=== PATIENT | female | born 1940 | race Caucasian/White ===

== ENCOUNTER 2019-10-20 10:49 | Outpatient (CLI) | payer MEDICARE, SELFPAY ==
--- NOTE | ~2019-10-20 | XR_ITS ---
EXAMINATION: XR wrist RT min 3V DATE: 10/20/2019 11:09 INDICATION: Osteoarthritis with medial sided right wrist pain TECHNIQUE: Posteroanterior, ulnar deviation, oblique, and lateral views of the right wrist were obtai gisella. COMPARISON: none FINDINGS: Alignment is normal. No fracture. Diffuse osteopenia. Mild polyarticular osteoarthritis at the radios caphoid, triscaphe, first and fifth carpometacarpal and several of the profiled metacarpophalangeal a nd interphalangeal joints. No cortical erosions to suggest an inflammatory arthritis. Soft tissues ar e unremarkable. IMPRESSION: 1. 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 Reviewed, dictated and finalized at location A.
== END 2019-10-20 10:50 | disposition home or self-care (01) ==
PROVIDERS: PCP Emergency Medicine; Visit Provider Plastic Surgery
DX: M19.041 Primary osteoarthritis, right hand (principal); M19.031 Primary osteoarthritis, right wrist
CPT/HCPCS: 73110

== ENCOUNTER 2019-10-21 00:27 | Outpatient (CLI) | payer MEDICARE, SELFPAY ==
[2019-10-21 18:55] LABS: SARS-CoV-2 RNA PCR Negative
== END 2019-10-21 00:28 | disposition home or self-care (01) ==
LOC: ANHCOVIDDT 00:28
PROVIDERS: PCP Emergency Medicine; Visit Provider Plastic Surgery
DX: Z01.818 Encounter for other preprocedural examination (principal); Z11.59 Encounter for screening for other viral diseases; M18.11 Unilateral primary osteoarthritis of first carpometacarpal joint, right hand
CPT/HCPCS: 87635; C9803; U0003

== ENCOUNTER 2019-10-23 00:59 | Day surgery (SDC) | payer MEDICARE, SELFPAY ==
--- NOTE | 2019-10-21 10:45 | HP_ITS ---
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 HISTORY: Karla is 79. She was referred by Dr. Santacruz, her primary care physician, in February of last year for pain in the right 1st carpometacarpal joint. We had reviewed x-rays from 2019 indicating degenerative changes of the interphalangeal joint and the carpometacarpal joint. She reports discomfort only at the carpometacarpal joint. She was given the corticosteroid injection at that joint in February. She said relief lasted through May, but she has now a lot of pain that interferes with daily activities. We obtained new x-rays, which show mild polyarticular osteoarthritis of the wrist and hand involving the carpometacarpal joint and the triscaphe joint. She declined any injection at this time and requested surgery that had been explained to her before. She understands there will be an excision of a small bone at the base of her thumb and that a device will be placed to suspend the thumb against the index metacarpal. Intention is to relieve her pain and to allow useful range of motion and strength. She would like to proceed. She understands that she could have loss of a small artery to the thumb. She could have numbness over the dorsum of her thumb. She could have instability of this joint. She may have a need for reoperation of this site and she may go on to develop additional arthritis in the future. She would like to proceed. ALLERGIES: SHE LISTS CLONIDINE AND SEAFOOD ALLERGIES. MEDICATIONS: Her current medications include: 1. Benzonatate. 2. Carvedilol. 3. Hydrochlorothiazide. 4. Levothyroxine. 5. Quinapril. 6. Vitamin D2. PAST SURGICAL HISTORY: Prior surgeries include cataract on the left eye several decades ago, hysterectomy in , hernia repair in , some back surgery in 2005 and a broken tibia in 2006. She sees no specialist on a regular basis. She has never been a smoker. REVIEW OF SYSTEMS: Indicates that she has had trouble with shingles, arthritis, thyroid and hypertension. FAMILY HISTORY: Noncontributory. SOCIAL HISTORY: She lives in [place]. She works for the [employer]. PHYSICAL EXAMINATION: GENERAL: She is 5 feet and 0.5 inch. She is 157 pounds. She is in no distress. HEENT: Unremarkable. CHEST: Clear to auscultation. HEART: Regular rate and rhythm by palpation. ABDOMEN: Soft and nontender. Extremities: Appear normal. She uses all 4, but has tenderness at the 1st CMC joint to direct pressure primarily. At this time, she has excellent range of motion of that joint, but it is generally painful. ASSESSMENT: Painful osteoarthritis of the right 1st CMC joint and triscaphe joint, failing conservative treatment. PLAN: Resection arthroplasty with internal brace suspension under general anesthesia. D I MT: Shani ORTEGA
[2019-10-22 08:42] VITALS: BMI 29.6
[2019-10-23] VITALS (7 sets, daily range): BP systolic 125–158; BP diastolic 50–80; PULSE 45–58; RESP 12–20; TEMP 36.1; O2SAT 97–100
--- NOTE | ~2019-10-23 | XR_ITS ---
EXAMINATION: XR surgery orthopedic DATE: 10/23/2019 09:05 INDICATION: Trapezium resection. TECHNIQUE: 3 fluoroscopic spot images of the carpus of the right hand were obtained during procedure performed by Dr. Gillespie. Radiologist was not present for the imaging or procedure. The amount of fluor oscopy time used during this procedure was 0.8 minutes. COMPARISON: 10/20/2019 FINDINGS: Postoperative changes consistent with right first carpal metacarpal suspension arthroplasty with rese ction of the trapezium. There are some lucent expected gas in the soft tissues of the postoperative b ed. There is a subtle lucency at the base of the first metacarpal which could represent an anchor tra ct. No fracture. Mild osteoarthritis at the radial scaphoid articulation. IMPRESSION: 1. Expected postoperative changes of right first carpal metacarpal suspension arthroplasty. See proce dure note for further detail. Reviewed, dictated and finalized at location A. IMPRESSION: 1. Expected postoperative changes of right first carpal metacarpal suspension a rthroplasty. See procedure note for further detail.
--- NOTE | 2019-10-23 06:20 | ECG_ITS ---
Measurements Intervals [place] Rate: 49 P: 45 VT: 151 QRS: -18 QRSD: 143 T: 83 QT: 463 QTc: 420 Interpretive Statements SINUS BRADYCARDIA LEFT BUNDLE BRANCH BLOCK BASELINE ARTIFACT- II, III, AVF ABNORMAL ECG Electronically Signed On 10-23-2019 8:30:58 CDT by Nate Diaz D.O.
--- NOTE | 2019-10-23 06:36 | WPDANESEPPF ---
Anes - Initial Pre Proc Eval Procedure: Operation Date: 10/23/19 07:30 Proposed Procedures p Right Trapezium Resection Arthroplasty with Internal Brace - Cipriano Gillespie MD Date/Time: 10/23/19 06:36 Surgeon: Cipriano Gillespie MD Pre Op Diagnosis: right 1st CMC joint OA with pain Patient Data Age: 79 Gender: F Height: 1.55 m Weight: 70.4 kg Allergies Allergy/AdvReac Type Severity Reaction Status Date / Time clonidine Allergy Severe UNKNOWN Verified 10/23/19 06:11 REACTION SEAFOOD Allergy Severe LIP/THROAT Uncoded 10/23/19 06:11 SWELLING Home Medications Medication Instructions Recorded Confirmed Type Vitamin D3 1 tablet PO DAILY 10/22/19 10/23/19 History carvedilol 6.25 mg PO BID 10/22/19 10/23/19 History fenofibrate 160 mg PO HS 10/22/19 10/23/19 History hydrochlorothiazide 12.5 mg PO DAILY 10/22/19 10/23/19 History levothyroxine 88 mcg PO DAILY 10/22/19 10/23/19 History pravastatin 20 mg PO DAILY 10/22/19 10/23/19 History quinapril 40 mg PO DAILY 10/22/19 10/23/19 History Patient hx anesthesia problems: none Family hx anesthesia problems: none PMFSH Past Medical History Medical History (Updated 10/23/19 @ 06:34 by Douglas Zavala DO) Hyperlipidemia Hypertension Hypothyroidism Surgical History Surgical History (Updated 10/23/19 @ 06:34 by Douglas Zavala DO) History of hysterectomy History of spinal surgery Family History Family History (Updated 12/25/13 @ 07:13 by DOCTOR UNKNOWN) Sibling Family history of coronary artery disease Social History Social History Smoking status: Never smoker Alcohol intake: current Anes - Eval Final PreProcedure Day of Procedure 10/23/19 06:36 Patient weight: overweight Heart: regular rate and rhythm Lungs: clear to auscultation and normal air movement Airway: Mallampati scale class II Neurological: alert and oriented Last oral intake: >/= 8 hours ASA classification: III Emergent: no Anesthetic plan: proceed Anesthesia type and monitoring: general LMA and standard monitoring Informed Consent: The patient's anesthetic plan and its attendant risks and benefits were discussed with the patient/family/POA. Questions were solicited and answers provided to the satisfaction of the patient/family/POA.
[2019-10-23] MEDS: LACTATED RINGERS 1,000 ML 30 ML IV CONT ×2 (06:45→09:21)
[2019-10-23 07:09] LABS: Blood Urea Nitrogen 40 mg/dL (7-17); Calcium 8.8 mg/dL (8.4-10.2); Carbon Dioxide 26 mmol/L (22-30); Chloride 106 mmol/L (98-107); Estimated CRCL calculation 34 ml/min; Estimated Glomerular Filt Rate 48; Glucose 108 mg/dL (65-105); Potassium 4.7 mmol/L (3.4-5.0); Sodium 134 mmol/L (137-145)
--- NOTE | 2019-10-23 07:20 | WPDHPUPDATE1 ---
History and Physical Update Update Date/Time: 10/23/19 07:20 History and Physical has been reviewed, including an updated exam of the patient. There are NO changes in the patient's condition. Risks, benefits, and alternatives have been discussed and questions answered. Patient agrees to proceed with procedure.
[2019-10-23] MEDS: ceFAZolin 2 GM/D5W 50 ML 2 GM/50 ML BAG IVPB (07:35)
[2019-10-23] MEDS: LIDO 1%/EPINEPHRINE 1:100,000 20 ML VIAL INFILTRATE (07:35)
--- NOTE | 2019-10-23 09:07 | SUR.OPER ---
injected additional exparel total of 15cc of exparel
--- NOTE | 2019-10-23 09:28 | P.OPB_ITS ---
Procedure Note - Brief Procedure Note - Brief Date of procedure: 10/23/19 Pre-op diagnosis: right 1st CMC joint OA with pain Post-op diagnosis: same Procedure performed: R trapezium resection arthroplasty with InternalBrace. Implants: Arthrex InternalBrace Anesthesia: GLMA Surgeon: Cipriano Gillespie MD [employer] Technician: Hilda Estimated blood loss (mL): 5 Tourniquet time (min): 60 Drains: No Packing: No Pathology: none sent Complications: No immediate complications Condition: stable Disposition: PACU
--- NOTE | 2019-10-23 10:42 | P.OP_ITS ---
Procedure Note - Detailed Date of procedure: 10/23/19 Pre-op diagnosis: right 1st CMC joint OA with pain Right first CMC Joint painful osteoarthritis. Post-op diagnosis: same Procedure performed: Right trapezium resection arthroplasty with InternalBrace. Description of procedure: The patient's right basal joint was marked as she waited in the preop holding area. She was then taken to the operating room and placed supine on the operating table. A time-out was held and confirmed. The extremity was prepped and draped in usual fashion and she was given general anesthesia with LMA. The site was marked for the incision and locally infiltrated with 1% lidocaine with epinephrine. The tourniquet was inflated to 250 mmHg. The incision was made in the usual fashion and carefully carried through the subcutaneous tissue. Branches of cutaneous nerves were identified and carefully held out of the way throughout the procedure. The access to the joint was made between the abductor pollicis longus and the extensor pollicis brevis. The 1st dorsal compartment was not opened. The princeps pollicis artery was not specifically identified. The capsule was incised with a 15 blade.The base of the metacarpal and the radial surface of the trapezium were dissected subperiosteally, largely with a 15 blade. This exposed our access point on the radial volar aspect of the metacarpal for placement of the suture lock. The trapezium was split with an osteotome and removed piecemeal with small rongeurs. There was minimal osteophyte formation and minimal the reactive tissue around this joint. C-arm images confirmed the absence of the trapezium. The Arthrex internal brace was opened and placed on the table. The included guidewire was passed into the radial base of the metacarpal, imaged, then over- drilled using included equipment. The suture lock was placed into that opening successfully. Using C-arm and C-wire we were able to identify the site to be accessed at the base of the 2nd metacarpal. The C-wire was passed into the radial base of the 2nd metacarpal and imaged. It appeared to lie in a useful position. This was also over-drilled with the supplied equipment. With the thumb in a distracted and adducted position, the suture locked was set over the internal brace fiber locking it into position. There was adequate passive range of motion following this. Images were made of the thumb in this new position. The capsule was repaired with interrupted 3-0 Vicryl sutures at multiple sites; again this did not interfere with range of motion. No advancement or repositioning of the extensor pollicis brevis was done. Redundant capsular tissue was placed inside the joint space. The skin was closed with interrupted and running intradermal 4-0 Monocryl suture. A short thumb spica splint was a pplied allowing IP joint range of motion 15 milliliter of Exparel bupivacaine was infiltrated in and around the joint to include cutaneous branches of the radial nerve. This patient had received 2 g of IV Ancef before the case began. She is being discharged with instructions in wound care and follow-up. She will have a prescription for hydrocodone . Surgeon: Cipriano Gillespie MD
--- NOTE | 2019-10-23 12:33 | SUR.PHASEII ---
1105 dr jimenez wants pt to go home with a sling. sling applied prior to discharge
== END 2019-10-23 11:30 | disposition home or self-care (01) ==
PROVIDERS: Anesthesiology; PCP Emergency Medicine; Visit Provider Plastic Surgery
PROC: (CPT 25447; principal; 2019-10-23 07:30)
DX: M18.11 Unilateral primary osteoarthritis of first carpometacarpal joint, right hand (principal); I10 Essential (primary) hypertension
CPT/HCPCS: 25447; 36415; 80048; 87635; 93005; A4565; A9270; C9290; C9803; J0690; J2405; J2704; J3010; J7120; U0003

== ENCOUNTER 2021-09-07 22:58 | Inpatient (IN) | payer MEDICARE, SELFPAY ==
--- NOTE | ~2021-09-07 | XR_ITS ---
XR chest PICC line DATE: 09/10/2021 14:55 INDICATION: PICC line placement TECHNIQUE: Portable AP chest on 09/10/2021 at 1452 hours COMPARISON: 08/04/2010 2 view chest FINDINGS: Right upper stomach the catheter tip is situated in the lower aspect of the superior vena c suma. NG tube in stomach, proximal side-port 5 cm distal to the diaphragmatic hiatus. There is bibasilar infiltrate and/atelectasis. The lungs otherwise appear clear. No pneumothorax. Heart size is likely within normal range considering magnification associated with AP projection. Diffuse osteopenia. IMPRESSION: Right upper extremity PIC catheter in lower superior vena cava NG tube in stomach Bibasilar infiltrate or atelectasis Reviewed, dictated and finalized at Location A. Reviewed, dictated and finalized at location A.
--- NOTE | ~2021-09-07 | XR_ITS ---
EXAMINATION: XR abdomen/kub 1V INDICATION: Small bowel obstruction TECHNIQUE: Supine view of the abdomen is obtained. COMPARISON: 09/08/2021 FINDINGS: The nasogastric tube is in the stomach. No definitely bowel are identified. The bowel gas p attern is there are minimal airspace opacities of the right lung base. IMPRESSION: 1. No definitely dilated loops of bowel identified. 2. Right basilar airspace opacity, consistent with atelectasis versus pneumonia. Reviewed, dictated and finalized at location A. IMPRESSION: 1. No definitely dilated loops of bowel identified. 2. Right basilar airspace opacity, consistent with atelectasis versus pneumonia .
--- NOTE | ~2021-09-07 | XR_ITS ---
EXAMINATION: XR abdomen NG/feed tube insert INDICATION: Nasogastric tube insertion TECHNIQUE: Portable AP KUB-NG at 0203 hours COMPARISON: CT from yesterday FINDINGS: The nasogastric tube is in the stomach. There is mild atelectasis of the lung bases. No freddy e intraperitoneal gas is identified. IMPRESSION: 1. Nasogastric tube in the stomach. Reviewed, dictated and finalized at location A.
--- NOTE | ~2021-09-07 | XR_ITS ---
EXAMINATION: XR UGI water soluble w sbs DATE: 09/09/2021 16:25 INDICATION: Small bowel obstruction. TECHNIQUE: Water-soluble contrast was administered through the nasogastric tube. Fluoroscopy of the s tomach and small bowel was performed. Fluoroscopy exposure time was 1.3 minutes. Radiographs of the a bdomen were obtained. The total number of images was 16. COMPARISON: CT abdomen and pelvis 09/07/2021 FINDINGS: UPPER GASTROINTESTINAL SERIES: The nasogastric tube tip is in the stomach. The stomach is normal. SMALL BOWEL SERIES: There are multiple dilated loops of small bowel. At 4 hours, the contrast had not passed to the colon . IMPRESSION: 1. Persistently dilated small bowel without passage of contrast to the colon by 4 hours, consistent w ith small bowel obstruction. Reviewed, dictated and finalized at location A. IMPRESSION: 1. Persistently dilated small bowel without passage of contrast to the colon by 4 hours, consistent with small bowel obstruction.
--- NOTE | ~2021-09-07 | CT_ITS ---
EXAMINATION: CT abdomen pelvis wo con DATE: 09/07/2021 23:46 INDICATION: Lower abdominal pain for 6 hours TECHNIQUE: Computed tomography (CT) of the abdomen and pelvis was performed without intravenous contr ast. Automated exposure control and iterative reconstruction technique were employed. Exam dose: 579 .62 mGy-cm total exam DLP. COMPARISON: None. FINDINGS: The lung bases are clear of infiltrate or consolidation. Cardiomegaly. No pericardial or pl eural effusion. Small sliding hiatal hernia. There is evidence of cholelithiasis. No gallbladder wall thickening or pericholecystic fluid or fat s tranding. No bile duct or pancreatic duct dilatation. No hepatic, splenic, pancreatic, and adrenal or renal space-occupying mass lesion is evident on this limited noncontrast examination. There is nonspecific bilateral mild hydronephrosis without evidence of urinary tract calculus. There is atherosclerotic calcification but normal caliber of the abdominal aorta. No intraperitoneal or retroperitoneal or pelvic mass lesion or adenopathy or ascites. Diverticulosis of the sigmoid colon; no CT evidence of diverticulitis. There are fluid distended small bowel segments and small bowel air-fluid levels. Maximal small bowel caliber is noted in the left pelvic area, measuring up to 2.8 cm diameter. The distal small bowel is decompressed. Consider partial small bowel obstruction. Mild free fluid is noted in the dependent pelvis. No abscess cavity is evident. No intraperitoneal free air is detected. Moderate moderate anterior wedge compression fracture deformity of T12. Diffuse osteopenia. Degenerative changes of the lower thoracic and lumbar spine, including severe degenerative disc disea se at L5-S1. There is degenerative change at the lumbar apophyseal joints, with associated grade 1 an terolisthesis at L4-5. IMPRESSION: Partial small bowel obstruction is suggested in the pelvic area Mild free fluid in the dependent pelvis Diverticulosis of the sigmoid colon; no evidence of diverticulitis Nonspecific mild bilateral hydronephrosis Cholelithiasis T12 compression fracture deformity Degenerative changes of the thoracic and lumbar spine Reviewed, dictated and finalized at Location A. Reviewed, dictated and finalized at location B.
[2021-09-07 23:06] VITALS: BP 171/91; PULSE 65; RESP 16; TEMP 36.6; O2SAT 100
--- NOTE | 2021-09-07 23:09 | ED.GENADULT ---
HPI - General Adult General Chief complaint: Abdominal Pain Stated complaint: low abd pain Time Seen by Provider: 09/07/21 23:05 Source: RN notes reviewed History of Present Illness HPI narrative: Patient presents emergency department from home for abdominal pain. Patient states pain began approximately 6:15 PM this evening pain is located across the bilateral lower abdomen is described as aching in nature. States is associated with 2 episodes of nausea vomiting. Patient states her last bowel movement was this morning states she did not take any pain medication at home but did try taking a stool softener but believes she threw it up she denies any fevers or chills, chest pain shortness of breath or any other symptoms Related Data Home Medications Medication Instructions Recorded Confirmed Vitamin D3 1 tablet PO DAILY 10/22/19 10/23/19 carvedilol 6.25 mg PO BID 10/22/19 10/23/19 fenofibrate 160 mg PO HS 10/22/19 10/23/19 hydrochlorothiazide 12.5 mg PO DAILY 10/22/19 10/23/19 levothyroxine 88 mcg PO DAILY 10/22/19 10/23/19 pravastatin 20 mg PO DAILY 10/22/19 10/23/19 quinapril 40 mg PO DAILY 10/22/19 10/23/19 Allergies Allergy/AdvReac Type Severity Reaction Status Date / Time clonidine Allergy Severe UNKNOWN Verified 10/23/19 06:11 REACTION SEAFOOD Allergy Severe LIP/THROAT Uncoded 10/23/19 06:11 SWELLING Review of Systems Review of Systems: Gen.: Denies fevers or chills ENT: Denies congestion Respiratory: Denies shortness of breath or cough CV: Denies chest pain or palpitations GI: See HPI denies burning, urgency, frequency or hematuria Musculoskeletal: Denies back pain or muscle pain Neuro: Denies numbness, tingling, weakness or focal weakness Skin: Denies rash Except as documented, all other systems reviewed and negative [facility] Past Medical History Medical History Hyperlipidemia Hypertension Hypothyroidism Surgical History Surgical History (Updated 10/23/19 @ 06:34 by Douglas Zavala DO) History of hysterectomy History of spinal surgery Family History Family History (Updated 12/25/13 @ 07:13 by DOCTOR UNKNOWN) Sibling Family history of coronary artery disease Social History Social History Smoking status: Never smoker Alcohol intake: current Exam Narrative: APPEARANCE: No acute distress, nontoxic, resting in bed HEENT: Normocephalic, atraumatic, OMM RESPIRATORY: No respiratory distress, clear to auscultation bilaterally with no rhonchi wheezing or rales CARDIOVASCULAR: RRR s murmur ABDOMINAL: Soft nondistended diffusely tender palpation with increased tenderness in right lower quadrant left lower quadrant no rebound or guarding MUSCULOSKELETAl: Moves all extremities. No clubbing, cyanosis or edema. NEURO: Awake and alert. Following commands, speech normal, no focal deficits SKIN:: Warm, dry. Normal Color PSYCHIATRIC: Normal affect/mood Course Course Emergency Course: Discussed with Dr. Reese agrees with consult recommends NG tube be placed Discussed with Dr. Aguilar agrees with admission Discussed with patient and family results of workup and diagnosis. Discussed need for admission. Patient and family understand and agree to current treatment plan Vital Signs Vital signs: Vital Signs Temperature 97.8 F 09/07/21 23:06 Pulse Rate 65 09/07/21 23:06 Respiratory Rate 16 09/07/21 23:06 Blood Pressure 171/91 H 09/07/21 23:06 Pulse Oximetry 100 09/07/21 23:06 Temperature 97.8 F 09/07/21 23:06 Pulse Rate 80 09/08/21 02:41 Respiratory Rate 16 09/08/21 02:41 Blood Pressure 123/55 L 09/08/21 02:41 Pulse Oximetry 98 09/08/21 02:41 Medical Decision Making Vital Signs Vital Signs: Vital Signs Temperature 97.8 F 09/07/21 23:06 Pulse Rate 65 09/07/21 23:06 Respiratory Rate 16 09/07/21 23:06 Blood Pressure 171/9
[2021-09-07] MEDS: ONDANSETRON INJ 4 MG/2 ML VIAL IV PUSH (23:24)
[2021-09-07] MEDS: SODIUM CHLORIDE 0.9% IV 1,000 ML 999 ML IV CONT (23:26)
[2021-09-07 23:43] LABS: Basophils Absolute Auto 0.1 K/mm3 (0.0-0.1); Basophils Percent Auto 0.6 % (0.2-1.2); Eosinophils Absolute Auto 0.2 K/mm3 (0-0.3); Eosinophils Percent Auto 1.8 % (0-4.4); Hematocrit 41.1 % (37.0-47.0); Hemoglobin 13.9 g/dL (12.0-15.0); Immature Granulocyte Absolute 0.04 K/mm3 (0.00-0.031); Immature Granulocyte Percent A 0.4 % (0-0.5); Immature Platelet Fraction Pct 2.2 % (0.9-11.2); Lymphocytes Absolute Auto 2.67 K/mm3 (0.9-3.2); Lymphocytes Percent Auto 25.5 % (18.3-44.2); Mean Corpuscular HGB Conc 33.8 g/dl (32-36); Mean Corpuscular Hemoglobin 29.6 pg (26-34); Mean Corpuscular Volume 87.6 fl (80-100); Mean Platelet Volume 9.3 fl (7.4-10.4); Monocytes Absolute Auto 0.4 K/mm3 (0.1-0.6); Monocytes Percent Auto 3.8 % (2.6-8.5); Neutrophils Absolute Auto 7.1 K/mm3 (1.3-6.7); Neutrophils Percent Auto 67.9 % (45.5-73.1); Platelet Count Result 146 k/mm3 (150-375); Red Blood Count 4.69 M/mm3 (4.2-5.4); Red Cell Distribution Width 13.2 % (11.5-14.5); White Blood Count 10.5 K/mm3 (4.5-10.0)
[2021-09-07 23:59] LABS: Alanine Aminotransferase 8 U/L (6-35); Albumin Level 4.5 g/dL (3.5-5.1); Alkaline Phosphatase 78 U/L (38-126); Anion Gap 8 mmol/L (8-16); Aspartate Amino Transferase 26 U/L (14-36); Bilirubin,Total 0.4 mg/dL (0.2-1.3); Blood Urea Nitrogen 39 mg/dL (7-17); Calcium 9.5 mg/dL (8.4-10.2); Carbon Dioxide 28 mmol/L (22-30); Chloride 99 mmol/L (98-107); Estimated Glomerular Filt Rate 43; Glucose 123 mg/dL (65-110); Lipase 101 U/L (23-300); Potassium 4.6 mmol/L (3.4-5.0); Sodium 135 mmol/L (137-145)
[2021-09-08] VITALS (9 sets, daily range): BP systolic 114–149; BP diastolic 55–78; PULSE 63–80; RESP 16–19; TEMP 36–37.2; O2SAT 94–98; BMI 29.0
[2021-09-08] MEDS: MORPHINE SULFATE (*CRX) 2 MG/ML INJ IV PUSH ×2 (00:11→05:13)
[2021-09-08 01:03] LABS: Appearance Urine Clear (Clear); Bilirubin Urine Negative (Negative); Color Urine Yellow (Yellow); Glucose Urine UA Negative (Negative); Ketones Urine Negative (Negative); Leukocyte Esterase Ur 1+ LEU/UL (Negative); Nitrate Urine Negative (Negative); Protein Urine Negative (Negative); Urobilinogen Urine 0.2 mg/dL (<2.0); pH Urine 6.5 (5.0-9.0)
[2021-09-08 01:16] LABS: Add Urine Microscopic? YES; Blood Urine Trace (Negative)
[2021-09-08 01:36] LABS: Lactic Acid Reflex 0.8 mmol/L (0.7-2.0)
--- NOTE | 2021-09-08 02:04 | PM.IMHP ---
H&P: HPI History of Present Illness Date/Time: 09/08/21 02:04 Chief Complaint: Abdominal pain. Narrative: This is an 81-year-old female with past medical history significant for hypothyroidism, dyslipidemia, hypertension. Patient presents to the emergency room due to abdominal pain diffusely localized, patient has been in her usual state of health up until this moment had a bowel movement in the morning that was rather small in size compared to her usual, had several episodes of nausea and vomiting, patient denies any fevers, rigors, chills, pain or burning with urination, no diarrhea, no hematemesis, no bright red blood per rectum, no melena. Preliminary workup was significant for CT of abdomen and pelvis with early small-bowel obstruction. Decision has been made to admit the patient for further evaluation management and treatment. Review of Systems Review of Systems: Abdominal pain, nausea, vomiting. Constitutional: Constitutional: Denies chills, Denies fatigue, Denies fever(s), Denies malaise and Denies night sweats Eyes: Eyes: Denies change in vision ENT: Denies dysphagia, Denies vertigo, Denies nasal congestion, Denies nasal discharge, Denies nasal obstruction and Denies odynophagia Cardiovascular: Cardiovascular: Denies claudication, Denies leg edema, Denies lightheadedness, Denies radiating jaw, neck or arm pain, Denies palpitations and Denies dyspnea on exertion Respiratory: Respiratory: Denies cough Gastrointestinal: Gastrointestinal: Reports abdominal pain, Denies dyspepsia, Denies heartburn, Denies diarrhea, Reports nausea and Reports vomiting Genitourinary: Genitourinary: Denies dysuria Musculoskeletal: Musculoskeletal: Denies back pain, Denies arthralgias and Denies joint swelling Integumentary/Breasts: Skin/Breast: Denies rash Neurologic: Denies focal weakness and Denies Sensory deficit (Neuro) Psychiatric: Psychiatric: Reports no additional psychiatric complaints and Reports as per HPI Endocrine: Endocrine: Denies cold intolerance, Denies heat intolerance, Denies polyphagia, Denies polydipsia, Denies polyuria and Denies palpitations Hematologic/Lymphatic: Hematologic/Lymphatic: Reports no additional hematologic/lymphatic complaints and Reports as per HPI Allergic/Immunologic: Allergic/Immunologic: Reports no additional allergic/immunologic complaints and Reports as per HPI [facility] Past Medical History Medical History (Updated 09/08/21 @ 04:11 by Junaid Cook MD) Hyperlipidemia Hypertension Hypothyroidism Surgical History Surgical History (Updated 10/23/19 @ 06:34 by Douglas Zavala DO) History of hysterectomy History of spinal surgery Family History Family History (Updated 12/25/13 @ 07:13 by DOCTOR UNKNOWN) Sibling Family history of coronary artery disease Social History Social History Smoking status: Never smoker Alcohol intake: current Meds Home Medications and Allergies Home Medications Medication Instructions Recorded Confirmed Type Vitamin D3 1 tablet PO DAILY 10/22/19 10/23/19 History carvedilol 6.25 mg PO BID 10/22/19 10/23/19 History fenofibrate 160 mg PO HS 10/22/19 10/23/19 History hydrochlorothiazide 12.5 mg PO DAILY 10/22/19 10/23/19 History levothyroxine 88 mcg PO DAILY 10/22/19 10/23/19 History pravastatin 20 mg PO DAILY 10/22/19 10/23/19 History quinapril 40 mg PO DAILY 10/22/19 10/23/19 History hydrocodone-acetaminophen 1 - 2 tablet PO Q4-6H PRN #14 10/23/19 Rx tablet Allergies Allergy/AdvReac Type Severity Reaction Status Date / Time clonidine Allergy Severe UNKNOWN Verified 10/23/19 06:11 REACTION SEAFOOD Allergy Severe LIP/THROAT Uncoded 10/23/19 06:11 SWELLING Vital Signs Vital Signs - 24 hr 09/07/21 23:06 Temperature 97.8 F Pulse Rate 65 Respiratory Rate 16 Blood Pressure 171/91 H Pulse Oximetry 100 Exam Const: General: cooperative, comfortabl
[2021-09-08] MEDS: PANTOPRAZOLE SODIUM IV 40 MG VIAL IV PUSH (02:29)
[2021-09-08 02:39] LABS: SARS-CoV-2 RNA PCR Negative
--- NOTE | 2021-09-08 03:41 | PC.NURSE ---
THis RN tried to call report 3 times before being able to give report to RN that is why it took so long to get patient to the floor.
--- NOTE | 2021-09-08 04:21 | ADMGEN ---
This patient, Karla Coley, was admitted to [facility] Room 321-02. Patient/family oriented to hospital policies and general routines including ID bracelet, bed and alarms, visiting hours, pain management, procedures, bathroom and other care routines, personal items, smoking policy, room service/diet, and visiting hours. Information on how to activate the Rapid Response Team has been discussed. Patient/Family are encouraged to report perceived risks to care and to ask questions if they do not understand what they are told or what they should do.
[2021-09-08] MEDS: ONDANSETRON INJ 4 MG/2 ML VIAL IV PUSH ×3 (05:13→19:04)
[2021-09-08] MEDS: ENOXAPARIN 40 MG/0.4 ML SYRINGE SUB-Q (08:42)
--- NOTE | 2021-09-08 10:06 | PM.CNGS ---
Assessment and Plan Assessment and plan (1) Small bowel obstruction: Code(s): K56.609 - Unspecified intestinal obstruction, unspecified as to partial versus complete obstruction Status: Acute Assessment and Plan: CT scan reviewed and discussed with the patient in detail. The CT suggests a partial small bowel obstruction. Would recommend to continue with conservative treatment with NG tube decompression, IV fluids, NPO ,and analgesics for now. Will continue to follow with serial abdominal exams and imaging. I discussed with the patient that typically this resolves with conservative measures, but this could require surgical exploration if she does not improve as expected. Patient understands and agrees to plan. Thank you for allowing us to see the patient in consultation and we will continue to follow along with you. (2) Acute UTI: Code(s): N39.0 - Urinary tract infection, site not specified Status: Acute Assessment and Plan: Patient was started on IV Rocephin for possible UTI. She is asymptomatic. Management per hospitalist. (3) Hypertension: Code(s): I10 - Essential (primary) hypertension Status: Acute (4) Hypothyroidism: Code(s): E03.9 - Hypothyroidism, unspecified Status: Acute (5) Cholelithiasis: Code(s): K80.20 - Calculus of gallbladder without cholecystitis without obstruction Status: Acute Assessment and Plan: Incidental finding of cholelithiasis with no evidence of cholecystitis on CT. Discussed this with the patient and what signs/symptoms to be aware of for the future. This is not contributing to her acute symptoms. Additional Plan I have discussed the patient's case and plan of care with Dr. Reese. History of Present Illness Consult details Consult date: 09/08/21 Reason for consult: other (Small-bowel obstruction) Requesting physician: Cipriano Spann DO Narrative: This is an 81-year-old female with hypertension, hypothyroidism, and hyperlipidemia, who presented to the ER with complaints of lower abdominal pain. She reports a sudden onset of pain while waiting for her dinner yesterday evening. She states the pain was across her entire lower abdomen and continued to worsen in severity throughout the evening. She developed nausea and had 2 episodes of vomiting. She also reports some bloating. She has never had this pain in the past. Due the severity of pain, she presented to the ER for evaluation. CT scan of abdomen and pelvis suggested a partial small bowel obstruction, cholelithiasis without evidence of cholecystitis, some mild free fluid in the pelvis, and no other acute findings. She was admitted to the hospitalist service and had an NG tube placed. She was started on IV fluids, analgesics, and made NPO. Our service has been consulted for the small-bowel obstruction. She is now seen on medical floor. She reports some improvement in her pain. She denies any flatus today. Her last bowel movement was a very small bowel movement yesterday morning prior to onset of symptoms. No other complaints at this time. She has a history of a partial vaginal hysterectomy and a right lower quadrant ventral hernia repair. She denies any similar episodes in the past or known previous bowel obstructions. 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
[2021-09-08] MEDS: DEXTROSE 5%/0.9% SOD CHL 1,000 ML 100 ML IV CONT (12:01)
--- NOTE | 2021-09-08 14:28 | PM.IMPN ---
Progress Note: A&P Assessment and Plan (1) Small bowel obstruction: Code(s): K56.609 - Unspecified intestinal obstruction, unspecified as to partial versus complete obstruction Status: Acute Assessment and Plan: Admit to regular medical floor Strict NPO NG in place to low intermittent suction Supportive care Follow surgery recommendations 09/08/2021 interval history: patient is a 81-year-old female with remote history right ovary rupture over 50 years ago patient presented emergency department with abdominal pain nausea or vomiting, CT scan of the abdomen showed partial small bowel obstruction, patient seen by surgery service recommending conservative management with NG tube to decompress, bowel rest IV hydration and pain management, will continue to monitor as patient's symptoms improved with flatus and possibly BM, will continue to monitor. (2) Acute UTI: Code(s): N39.0 - Urinary tract infection, site not specified Status: Acute Assessment and Plan: Started on Rocephin Await cultures (3) Hypothyroidism: Code(s): E03.9 - Hypothyroidism, unspecified Status: Acute Assessment and Plan: Unchanged (4) Hypertension: Code(s): I10 - Essential (primary) hypertension Status: Acute Assessment and Plan: Continue to monitor Hydralazine 10 mg IV push for systolic of 150 or greater (5) Hyperlipidemia: Code(s): E78.5 - Hyperlipidemia, unspecified Status: Acute Assessment and Plan: Unchanged Subjective Date/time seen: 09/08/21 14:28 Chief Complaint: Abdominal pain. Narrative: This is an 81-year-old female with past medical history significant for hypothyroidism, dyslipidemia, hypertension. Patient presents to the emergency room due to abdominal pain diffusely localized, patient has been in her usual state of health up until this moment had a bowel movement in the morning that was rather small in size compared to her usual, had several episodes of nausea and vomiting, patient denies any fevers, rigors, chills, pain or burning with urination, no diarrhea, no hematemesis, no bright red blood per rectum, no melena. Preliminary workup was significant for CT of abdomen and pelvis with early small-bowel obstruction. Decision has been made to admit the patient for further evaluation management and treatment. 09/08/2021 interval history: patient is a 81-year-old female with remote history right ovary rupture over 50 years ago patient presented emergency department with abdominal pain nausea or vomiting, CT scan of the abdomen showed partial small bowel obstruction, patient seen by surgery service recommending conservative management with NG tube to decompress, bowel rest IV hydration and pain management, will continue to monitor as patient's symptoms improved with flatus and possibly BM, will continue to monitor. Review of Systems Review of Systems: All systems reviewed & are unremarkable except as noted in HPI and below Exam Narrative: elderly frail Patient is comfortable, NAD HEENT: eyes are clear and none icteric LUNGS: normal respiratory effort ABD: bowel sounds are faint and diffusely tender Lower extremities: no edema SKIN: nonjaundiced Neuro: grossly intact. Objective Data Vital Signs Vital Signs: Vital Signs - 24 hr 09/07/21 23:06 09/08/21 02:41 09/08/21 03:40 Temperature 97.8 F Pulse Rate 65 80 68 Respiratory Rate 16 16 16 Blood Pressure 171/91 H 123/55 L 120/64 Pulse Oximetry 100 98 95 09/08/21 03:50 09/08/21 06:00 09/08/21 08:21 Temperature 96.9 F L 96.8 F L Pulse Rate 63 70 Respiratory Rate 18 16 Blood Pressure 126/64 114/60 Pulse Oximetry 96 95 97 Intake/Output Intake/Output: Intake & Output 09/05/21 09/06/21 09/07/21 09/08/21 23:59 23:59 23:59 23:59 Intake Total 100 50 Balance 100 50 Meds/Results Medications: Active Medications Generic Name Dose Route Start Last Admin
[2021-09-09] VITALS (10 sets, daily range): BP systolic 126–154; BP diastolic 64–75; PULSE 78–93; RESP 14–22; TEMP 36.1–36.9; O2SAT 90–100
[2021-09-09 00:11] LABS: Glucose Point of Care 161 mg/dl (65-105)
[2021-09-09] MEDS: DEXTROSE 5%/0.9% SOD CHL 1,000 ML 100 ML IV CONT (06:33)
[2021-09-09 06:50] LABS: Basophils Percent Auto 0.2 % (0.2-1.2); Eosinophils Percent Auto 0.1 % (0-4.4); Hematocrit 43.8 % (37.0-47.0); Hemoglobin 14.1 g/dL (12.0-15.0); Immature Granulocyte Absolute 0.07 K/mm3 (0.00-0.031); Immature Granulocyte Percent A 0.4 % (0-0.5); Lymphocytes Absolute Auto 2.61 K/mm3 (0.9-3.2); Lymphocytes Percent Auto 15.6 % (18.3-44.2); Mean Corpuscular HGB Conc 32.2 g/dl (32-36); Mean Corpuscular Hemoglobin 29.1 pg (26-34); Mean Corpuscular Volume 90.5 fl (80-100); Mean Platelet Volume 9.9 fl (7.4-10.4); Monocytes Absolute Auto 1.1 K/mm3 (0.1-0.6); Monocytes Percent Auto 6.4 % (2.6-8.5); Neutrophils Absolute Auto 12.9 K/mm3 (1.3-6.7); Neutrophils Percent Auto 77.3 % (45.5-73.1); Platelet Count Result 161 k/mm3 (150-375); Red Blood Count 4.84 M/mm3 (4.2-5.4); Red Cell Distribution Width 13.3 % (11.5-14.5); White Blood Count 16.8 K/mm3 (4.5-10.0)
[2021-09-09 06:58] LABS: Alanine Aminotransferase 10 U/L (6-35); Albumin Level 3.7 g/dL (3.5-5.1); Alkaline Phosphatase 62 U/L (38-126); Anion Gap 6 mmol/L (8-16); Aspartate Amino Transferase 21 U/L (14-36); Bilirubin,Total 0.5 mg/dL (0.2-1.3); Blood Urea Nitrogen 30 mg/dL (7-17); Calcium 8.3 mg/dL (8.4-10.2); Carbon Dioxide 25 mmol/L (22-30); Chloride 104 mmol/L (98-107); Estimated CRCL calculation 30 ml/min; Estimated Glomerular Filt Rate 43; Glucose 138 mg/dL (65-110); Potassium 4.7 mmol/L (3.4-5.0); Sodium 135 mmol/L (137-145)
[2021-09-09 07:09] LABS: Magnesium 1.9 mg/dL (1.6-2.3)
[2021-09-09] MEDS: ENOXAPARIN 40 MG/0.4 ML SYRINGE SUB-Q (08:32)
--- NOTE | 2021-09-09 11:04 | PM.PNGS ---
Progress Note: A&P Assessment and Plan (1) Small bowel obstruction: Code(s): K56.609 - Unspecified intestinal obstruction, unspecified as to partial versus complete obstruction Status: Acute Assessment and Plan: may well be resolved. Will get Gastrografin upper GI small-bowel follow-through. If passes through the small bowel with relatively normal transit, will DC NG and start oral intake. Looks much better today. Subjective Subjective Date/Time Seen: 09/09/21 11:04 Patient reports: feels better, pain is less ( Having no abdominal pain), flatus and afebrile Review of Systems Review of Systems: All systems reviewed & are unremarkable except as noted in HPI and below Constitutional: Constitutional: Denies chills and Denies fever(s) Cardiovascular: Cardiovascular: Denies chest pain, Denies diaphoresis, Denies dyspnea and Denies paroxysmal nocturnal dyspnea Respiratory: Respiratory: Denies chest congestion, Denies cough and Denies dyspnea Gastrointestinal: Gastrointestinal: Reports as per HPI, Denies abdominal pain, Denies heartburn, Denies diarrhea, Denies nausea and Denies vomiting Exam Const: General: comfortable and no acute distress; No confusion Orientation/consciousness: patient oriented x3 and No confusion GI: Inspection: non-distended and no visible herniation GI Palp: Yes Soft to palpation, No Tenderness to palpation present (GI), No Guarding due to palpation present (GI) and No Rebound tenderness present Auscultation: normal bowel sounds Neuro: General: patient oriented x3, no focal motor deficits and No confusion Extrem: General: no calf tenderness and no edema Psych: Affect: normal affect Insight: Good insight present (Psych) Judgement: Good judgement present (Psych) Objective Data Vital Signs Vital Signs: Vital Signs - 24 hr 09/08/21 14:00 09/08/21 22:00 09/08/21 22:14 Temperature 37.2 C 36.3 C L Pulse Rate 72 75 Respiratory Rate 19 16 Blood Pressure 148/78 H 149/76 H Pulse Oximetry 98 94 96 09/09/21 05:27 Temperature 36.3 C L Pulse Rate 80 Respiratory Rate 14 Blood Pressure 149/70 H Pulse Oximetry 97 Intake/Output Intake/Output: Intake & Output 09/06/21 09/07/21 09/08/21 09/09/21 23:59 23:59 23:59 23:59 Intake Total 100 1200 100 Output Total 500 Balance 100 1200 -400 Meds/Results Medications: Active Medications Generic Name Dose Route Start Last Admin Trade Name Freq PRN Reason Stop Dose Admin Enoxaparin Sodium 40 mg 09/08/21 09:00 09/09/21 08:32 Enoxaparin 40 Mg/0.4 Ml Syringe SUB-Q 40 mg DAILY EMMA Administration Ceftriaxone Sodium/Dextrose 1 gm in 50 mls @ 100 mls/hr 09/08/21 21:00 09/08/21 22:37 Rocephin 1 Gm/D5w 50 Ml IVPB Infused Q24H EMMA Infusion Dextrose/Sodium Chloride 1,000 mls @ 100 mls/hr 09/08/21 10:30 09/09/21 06:34 Dextrose 5% Sodium Chloride 0.9% IV CONT Not Given .Q10H EMMA Morphine Sulfate 2 mg 09/08/21 10:32 Morphine Sulfate (*Crx) 2 Mg/Ml Inj IV PUSH Q2H PRN Pain Rated 7-10 Ondansetron HCl 4 mg 09/08/21 02:05 09/08/21 19:04 Ondansetron Inj 4 Mg/2 Ml Vial IV PUSH 4 mg Q4H PRN Administration Nausea Radiology Results: ITS Impressions Abdomen/Pelvis CT 09/08/21 08:06 IMPRESSION: Partial small bowel obstruction is suggested in the pelvic area Mild free fluid in the dependent pelvis Diverticulosis of the sigmoid colon; no evidence of diverticulitis Nonspecific mild bilateral hydronephrosis Cholelithiasis T12 compression fracture deformity Degenerative changes of the thoracic and lumbar spine Abdomen X-Ray 09/09/21 07:10 IMPRESSION: 1. No definitely dilated loops of bowel identified. 2. Right basilar airspace opacity, consistent with atelectasis versus pneumonia. Labs Labs: Laboratory Results - last 24 hr 09/09/21 09/09/21 09/09/21 00:04 06:27 06:27 WBC 16.8 H RBC 4.84 Hgb 14.1 Hct 43.8 MCV 90.5 MCH
[2021-09-09] MEDS: ONDANSETRON INJ 4 MG/2 ML VIAL IV PUSH (16:10)
--- NOTE | 2021-09-09 16:20 | PM.IMPN ---
Progress Note: A&P Assessment and Plan (1) Small bowel obstruction: Code(s): K56.609 - Unspecified intestinal obstruction, unspecified as to partial versus complete obstruction Status: Acute Assessment and Plan: Admit to regular medical floor Strict NPO NG in place to low intermittent suction Supportive care Follow surgery recommendations 09/08/2021 interval history: patient is a 81-year-old female with remote history right ovary rupture over 50 years ago patient presented emergency department with abdominal pain nausea or vomiting, CT scan of the abdomen showed partial small bowel obstruction, patient seen by surgery service recommending conservative management with NG tube to decompress, bowel rest IV hydration and pain management, will continue to monitor as patient's symptoms improved with flatus and possibly BM, will continue to monitor. 09/09/2021 interval history: patient is a 81-year-old female with remote history right ovary rupture over 50 years ago patient presented emergency department with abdominal pain nausea or vomiting, CT scan of the abdomen showed partial small bowel obstruction, patient seen by surgery service recommending conservative management with NG tube to decompress, bowel rest IV hydration and pain management, today patient had a care it showed resolution of the small-bowel obstruction and to further evaluate small-bowel follow-through series is ordered, will follow up, will continue to monitor as patient's symptoms improve, patient seen by surgery service further recommendation to follow (2) Acute UTI: Code(s): N39.0 - Urinary tract infection, site not specified Status: Acute Assessment and Plan: Started on Rocephin Await cultures (3) Hypothyroidism: Code(s): E03.9 - Hypothyroidism, unspecified Status: Acute Assessment and Plan: Unchanged (4) Hypertension: Code(s): I10 - Essential (primary) hypertension Status: Acute Assessment and Plan: Continue to monitor Hydralazine 10 mg IV push for systolic of 150 or greater (5) Hyperlipidemia: Code(s): E78.5 - Hyperlipidemia, unspecified Status: Acute Assessment and Plan: Unchanged Subjective Date/time seen: 09/09/21 16:20 09/09/2021 interval history: patient is a 81-year-old female with remote history right ovary rupture over 50 years ago patient presented emergency department with abdominal pain nausea or vomiting, CT scan of the abdomen showed partial small bowel obstruction, patient seen by surgery service recommending conservative management with NG tube to decompress, bowel rest IV hydration and pain management, today patient had a care it showed resolution of the small-bowel obstruction and to further evaluate small-bowel follow-through series is ordered, will follow up, will continue to monitor as patient's symptoms improve, patient seen by surgery service further recommendation to follow Review of Systems Review of Systems: All systems reviewed & are unremarkable except as noted in HPI and below Exam Narrative: elderly frail Patient is comfortable, NAD HEENT: eyes are clear and none icteric LUNGS: normal respiratory effort ABD: bowel sounds are faint and diffusely tender Lower extremities: no edema SKIN: nonjaundiced Neuro: grossly intact. Objective Data Vital Signs Vital Signs: Vital Signs - 24 hr 09/08/21 22:00 09/08/21 22:14 09/09/21 05:27 Temperature 97.4 F L 97.3 F L Pulse Rate 75 80 Respiratory Rate 16 14 Blood Pressure 149/76 H 149/70 H Pulse Oximetry 94 96 97 09/09/21 13:58 Temperature Pulse Rate Respiratory Rate Blood Pressure Pulse Oximetry 96 Intake/Output Intake/Output: Intake & Output 09/06/21 09/07/21 09/08/21 09/09/21 23:59 23:59 23:59 23:59 Intake Total 100 1200 100 Output Total 500 Balance 100 1200 -400 Meds/Results Medications: Active Medications Generic Name
--- NOTE | 2021-09-09 17:31 | WPDHPUPDATE1 ---
History and Physical Update Update Date/Time: 09/09/21 17:31 Patient had Gastrografin upper GI small-bowel follow-through today which showed persistent and complete small bowel obstruction. There was no passage of contrast into the colon. I talked to the patient and discussed the findings. I have recommended proceeding with exploratory laparotomy for small bowel obstruction. She is agreeable to going ahead. We will proceed tonight. History and Physical has been reviewed, including an updated exam of the patient. There are NO changes in the patient's condition. Risks, benefits, and alternatives have been discussed and questions answered. Patient agrees to proceed with procedure.
--- NOTE | 2021-09-09 17:53 | WPDANESEPPF ---
Anes - Initial Pre Proc Eval Procedure: Operation Date: 09/09/21 17:30 Proposed Procedures p Exploratory Laparotomy, Pos Bowel Resec - Mehul Reese MD Date/Time: 09/09/21 17:53 Surgeon: JOANNE Mcguire Pre Op Diagnosis: Small bowel obstruction, UTI Patient Data Age: 81 Gender: F Height: 1.55 m Weight: 69.6 kg Last Vital Signs Temp 36.3 C L 09/09/21 05:27 Pulse 80 09/09/21 05:27 Resp 14 09/09/21 05:27 BP 149/70 H 09/09/21 05:27 Pulse Ox 96 09/09/21 13:58 Allergies Allergy/AdvReac Type Severity Reaction Status Date / Time clonidine Allergy Severe UNKNOWN Verified 10/23/19 06:11 REACTION SEAFOOD Allergy Severe LIP/THROAT Uncoded 10/23/19 06:11 SWELLING Home Medications Medication Instructions Recorded Confirmed Type carvedilol 6.25 mg PO BID 10/22/19 09/08/21 History hydrochlorothiazide 12.5 mg PO DAILY 10/22/19 09/08/21 History pravastatin 20 mg PO DAILY 10/22/19 09/08/21 History quinapril 40 mg PO DAILY 10/22/19 09/08/21 History levothyroxine 75 mcg PO QAM 09/08/21 09/08/21 History Laboratory Tests 09/09/21 09/09/21 09/09/21 00:04 06:27 06:27 WBC 16.8 K/mm3 H K/mm3 (4.5-10.0) RBC 4.84 M/mm3 M/mm3 (4.2-5.4) Hgb 14.1 g/dL g/dL (12.0-15.0) Hct 43.8 % % (37.0-47.0) MCV 90.5 fl fl (80-100) MCH 29.1 pg pg (26-34) MCHC 32.2 g/dl g/dl (32-36) RDW 13.3 % % (11.5-14.5) Plt Count 161 k/mm3 k/mm3 (150-375) MPV 9.9 fl fl (7.4-10.4) Immature Gran % (Auto) 0.4 % % (0-0.5) Neut % (Auto) 77.3 % H % (45.5-73.1) Lymph % (Auto) 15.6 % L % (18.3-44.2) [place] % (Auto) 6.4 % % (2.6-8.5) Eos % (Auto) 0.1 % % (0-4.4) Baso % (Auto) 0.2 % % (0.2-1.2) Lymph # (Auto) 2.61 K/mm3 K/mm3 (0.9-3.2) [place] # (Auto) 1.1 K/mm3 H K/mm3 (0.1-0.6) Eos # (Auto) 0.0 K/mm3 K/mm3 (0-0.3) Baso # (Auto) 0.0 K/mm3 K/mm3 (0.0-0.1) Abs Immat Gran (auto) 0.07 K/mm3 H K/mm3 (0.00-0.031) Absolute Neuts (auto) 12.9 K/mm3 H K/mm3 (1.3-6.7) Absolute Nucleated RBC 0.0 K/mm3 K/mm3 (0.0-0.012) Nucleated RBC % 0.0 % % (0.0-0.2) Sodium 135 mmol/L L mmol/L (137-145) Potassium 4.7 mmol/L mmol/L (3.4-5.0) Chloride 104 mmol/L mmol/L (98-107) Carbon Dioxide 25 mmol/L mmol/L (22-30) Anion Gap 6 mmol/L L mmol/L (8-16) BUN 30 mg/dL H mg/dL (7-17) Creatinine 1.20 mg/dL H mg/dL (0.7-1.0) Estim Creat Clear Calc 30 ml/min ml/min Estimated GFR 43 L (59 - ) Glucose 138 mg/dL H mg/dL (65-110) POC Capillary Glucose 161 mg/dl H mg/dl (65-105) Calcium 8.3 mg/dL L mg/dL (8.4-10.2) Magnesium Total Bilirubin 0.5 mg/dL mg/dL (0.2-1.3) AST 21 U/L U/L (14-36) ALT 10 U/L U/L (6-35) Alkaline Phosphatase 62 U/L U/L (38-126) Total Protein 7.0 g/dL g/dL (6.3-8.2) Albumin 3.7 g/dL g/dL (3.5-5.1) 09/09/21 06:27 WBC RBC Hgb Hct MCV MCH MCHC RDW Plt Count MPV Immature Gran % (Auto) Neut % (Auto) Lymph % (Auto) [place] % (Auto) Eos % (Auto) Baso % (Auto) Lymph # (Auto) [place] # (Auto) Eos # (Auto) Baso # (Auto) Abs Immat Gran (auto) Absolute Neuts (auto) Absolute Nucleated RBC Nucleated RBC % Sodium Potassium Chloride Carbon Dioxide Anion Gap BUN Creatinine Estim Creat Clear Calc Estimated GFR Glucose POC Capillary Glucose Calcium Magnesium 1.9 mg/dL mg/dL (1.6-2.3) Total Bilirubin AST ALT
[2021-09-09] MEDS: ceFAZolin SODIUM 1 GM VIAL 2 GM IV PUSH (18:24)
[2021-09-09] MEDS: LACTATED RINGERS 1,000 ML 30 ML IV CONT ×2 (18:25→19:40)
--- NOTE | 2021-09-09 19:42 | W.PM.PROC2 ---
Procedure Note - Detailed Date of Procedure 09/09/21 Pre-op Diagnosis Small bowel obstruction Post-op Diagnosis Other (Closed loop small bowel obstruction with bowel infarction) Procedure Performed Small-bowel resection with anastomosis Surgeon Mehul Reese MD [employer]ing Machine Operator Ap gandhi W[employer] Anesthesia General Indications Patient is an 81-year-old woman with severe lower abdominal pain nausea and vomiting. She came to the emergency room 2 days ago. Imaging showed likely small bowel obstruction with transition point in the pelvis. NG tube was placed and the patient actually improved. This morning she was pain free and it seemed that the obstruction had been relieved. An upper GI small-bowel follow-through was done today however and showed a complete obstruction. After talking with the patient, we are proceeding with laparotomy for small bowel obstruction. Findings There was an encircling band in the pelvis that had caused a closed loop obstruction. The intervening bowel was strangulated and infarcted. There was a lot of blood in the distal small bowel likely due to mucosal hemorrhage. No other significant abnormalities were appreciated. Description of Procedure The patient was taken to surgery and induced into general anesthesia. The abdomen is prepped and draped. A midline incision was made starting just above the umbilicus and proceeding down several cm below the umbilicus. We continued our dissection through the subcutaneous and then through the midline fascia into the peritoneal cavity. On reviewing the abdominal contents, it was noted that there was blood in the lumen of dilated small bowel and bloody ascites in the pelvis. This was of course ominous for bowel infarction. The source of obstruction did appear to be in the pelvis. I extended the incision towards the pubis and we was better able to visualize the adhesions in the pelvis. We suctioned away the bloody ascites. I was able to see the area and feel the bands of the adhesions. These were divided and I was able to bring up the involved loops of bowel. On bringing up the bowel, there was a small opening in some of the dilated bowel and some bloody a bowel content had leaked. This was quickly quarantined. It was evident that this was a closed loop obstruction and at this point I was not sure if this bowel would be salvageable or not. I went ahead and closed the small opening with interrupted Lembert sutures of 4-0 silk in a transverse orientation. This went well. We irrigated the pelvis and ran the small bowel. I checked with the general abdominal exploration and no other significant findings were noted. I then relook at the involved area of distal ileum. It did not appear salvageable. I then went ahead with small-bowel resection. We divided the mesentery just proximal and distal to the involved strangulated bowel. I then used at TLC 75 and divided the to normal pieces of bowel also proximal and distal to the strangulated intestine. I then used the LigaSure to divide the mesentery associated with the strangulated bowel. This area of ileum was then passed off as a specimen labeled infarcted ileum. One of the ends of bowel was smaller as it was distal to the obstruction. None the less we were able to perform a [id number] but functional anastomosis. This was performed with interrupted 4-0 silk suture suturing the 2 ends of bowel in a [id number] fashion. I then used the TLC 75 stapler and created the anastomosis. The entero enterotomy was then closed with a 60 mm TLC stapler. I cauterized the stapled end for hemostasis. The bowel looked quite healthy and viable. There was a good lumen palpable. I placed another 4 0 silk suture to buttress the crotch of the anastomosis. I then used 4-0 silk to close the mesenteric defect associated with the anastomosis. We then exposed the pelvis again. I irrigated with another L of warm saline. We suctioned this away. I placed the abdomin
[2021-09-09] MEDS: FAMOTIDINE 20 MG/2 ML VIAL IV PUSH (21:27)
[2021-09-09] MEDS: MORPHINE SULFATE (*CRX) 2 MG/ML INJ IV PUSH (21:27)
[2021-09-09] MEDS: LACTATED RINGERS 1,000 ML 100 ML IV CONT (21:27)
[2021-09-10] MEDS: MORPHINE SULFATE (*CRX) 2 MG/ML INJ IV PUSH ×3 (01:30→21:07)
[2021-09-10 02:15] VITALS: BP 126/68; PULSE 94; RESP 16; TEMP 36.8; O2SAT 95
[2021-09-10] MEDS: LACTATED RINGERS 1,000 ML 100 ML IV CONT ×2 (05:17→08:44)
[2021-09-10 05:42] VITALS: BP 139/62; PULSE 96; RESP 16; TEMP 36.1; O2SAT 95
[2021-09-10 07:49] LABS: Hematocrit 35.8 % (37.0-47.0); Hemoglobin 11.6 g/dL (12.0-15.0); Mean Corpuscular HGB Conc 32.4 g/dl (32-36); Mean Corpuscular Hemoglobin 28.9 pg (26-34); Mean Corpuscular Volume 89.3 fl (80-100); Mean Platelet Volume 9.6 fl (7.4-10.4); Platelet Count Result 119 k/mm3 (150-375); Red Blood Count 4.01 M/mm3 (4.2-5.4); Red Cell Distribution Width 13.5 % (11.5-14.5); White Blood Count 11.9 K/mm3 (4.5-10.0)
--- NOTE | 2021-09-10 07:52 | WPDANESPN ---
Anes - Prog Note Post-Op Date/Time: 09/10/21 07:52 Vital Signs: Last Vital Signs Temp 36.1 C L 09/10/21 05:42 Pulse 96 09/10/21 05:42 Resp 16 09/10/21 05:42 BP 139/62 09/10/21 05:42 Pulse Ox 95 09/10/21 05:42 Pain Score (VAS): 310 I/O: Intake & Output 09/09/21 09/09/21 09/10/21 15:59 23:59 07:59 Intake Total 100 1050 1000 Output Total 1680 100 Balance 100 -630 900 09/09/21 09/10/21 09/10/21 17:28 07:26 07:26 WBC Pending RBC Pending Hgb Pending Hct Pending MCV Pending MCH Pending MCHC Pending RDW Pending Plt Count Pending MPV Pending Sodium Pending Potassium Pending Chloride Pending Carbon Dioxide Pending Anion Gap Pending BUN Pending Creatinine Pending Estim Creat Clear Calc Pending Estimated GFR Pending Glucose Pending Calcium Pending Magnesium Pending Blood Type A Positive Antibody Screen Negative Patient Feedback: Patient satisfied with anesthetic care.
[2021-09-10 08:03] LABS: Anion Gap 6 mmol/L (8-16); Blood Urea Nitrogen 37 mg/dL (7-17); Carbon Dioxide 28 mmol/L (22-30); Chloride 104 mmol/L (98-107); Estimated CRCL calculation 24 ml/min; Estimated Glomerular Filt Rate 33; Glucose 139 mg/dL (65-110); Magnesium 1.9 mg/dL (1.6-2.3); Potassium 4.4 mmol/L (3.4-5.0); Sodium 138 mmol/L (137-145)
[2021-09-10] MEDS: ENOXAPARIN 40 MG/0.4 ML SYRINGE SUB-Q (08:43)
[2021-09-10] MEDS: FAMOTIDINE 20 MG/2 ML VIAL IV PUSH ×2 (08:44→20:29)
--- NOTE | 2021-09-10 10:49 | PM.PNGS ---
Progress Note: A&P Assessment and Plan (1) Small bowel obstruction with strangulation or infarction: Status: Acute Assessment and Plan: No bowel function as yet. I explained the operative findings to the patient. She is pretty comfortable and wishes to get out of bed later today which is a good idea. Will leave Guzman catheter in till tomorrow and likely discontinue tomorrow. She is doing well so far. Continue to monitor serial exams labs and start TPN as noted below. (2) Protein-calorie malnutrition, moderate: Code(s): E44.0 - Moderate protein-calorie malnutrition Status: Acute Assessment and Plan: Patient will be NPO for several days. She has already been NPO for several days. We will go ahead and get a PICC line placed and start TPN today. Subjective Subjective Date/Time Seen: 09/10/21 10:49 Post Op day: 1 Patient reports: no new complaints, pain is less (Incisional pain is not severe.), no flatus, no bowel movement and afebrile Exam GI: Inspection: non-distended GI Palp: Yes Soft to palpation and Yes Tenderness to palpation present (GI) Auscultation: absent bowel sounds Objective Data Vital Signs Vital Signs: Vital Signs - 24 hr 09/09/21 13:58 09/09/21 19:39 09/09/21 20:07 Temperature 36.8 C Pulse Rate 93 87 Respiratory Rate 19 20 Blood Pressure 148/74 H 151/72 H Pulse Oximetry 96 100 100 09/09/21 20:23 09/09/21 20:38 09/09/21 20:41 Temperature 36.2 C L 36.4 C Pulse Rate 89 88 86 Respiratory Rate 21 H 22 H 16 Blood Pressure 154/73 H 151/75 H 151/73 H Pulse Oximetry 93 94 90 09/09/21 20:56 09/09/21 21:26 09/09/21 22:26 Temperature 36.3 C L 36.1 C L 36.9 C Pulse Rate 87 78 93 Respiratory Rate 16 16 16 Blood Pressure 135/64 126/64 128/68 Pulse Oximetry 90 91 92 09/10/21 02:15 09/10/21 05:42 Temperature 36.8 C 36.1 C L Pulse Rate 94 96 Respiratory Rate 16 16 Blood Pressure 126/68 139/62 Pulse Oximetry 95 95 Intake/Output Intake/Output: Intake & Output 09/07/21 09/08/21 09/09/21 09/10/21 23:59 23:59 23:59 23:59 Intake Total 100 1200 1150 2050 Output Total 2180 100 Balance 100 1200 -1030 1950 Meds/Results Medications: Active Medications Generic Name Dose Route Start Last Admin Trade Name Freq PRN Reason Stop Dose Admin Enoxaparin Sodium 40 mg 09/08/21 09:00 09/10/21 08:43 Enoxaparin 40 Mg/0.4 Ml Syringe SUB-Q 40 mg DAILY EMMA Administration Famotidine 20 mg 09/09/21 21:00 09/10/21 08:44 Famotidine 20 Mg/2 Ml Vial IV PUSH 20 mg Q12HR EMMA Administration Ibuprofen 400 mg in 100 mls @ 200 mls/hr 09/09/21 20:41 Caldolor 400 Mg/100 Ml IVPB Q6H PRN Pain Rated 1-3 Piperacillin Sod/Tazobactam Sod 2.25 gm in 50 mls @ 100 mls/hr 09/10/21 00:00 09/10/21 08:37 Zosyn 2.25 Gm/D5w 50 Ml IVPB Infused Q6HR EMMA Infusion Potassium Chloride/Sodium Chloride 1,000 mls @ 125 mls/hr 09/10/21 09:05 Kcl 20 Meq/Ns IV CONT .Q8H EMMA Morphine Sulfate 2 mg 09/09/21 20:41 09/10/21 01:30 Morphine Sulfate (*Crx) 2 Mg/Ml Inj IV PUSH 2 mg Q2H PRN Administration Pain Rated 4-6 Morphine Sulfate 4 mg 09/09/21 20:41 Morphine Sulfate (*Crx) 4 Mg/Ml Inj IV PUSH Q2H PRN Pain Rated 7-10 Naloxone HCl 0.1 mg 09/09/21 20:41 Naloxone Hcl 0.4 Mg/Ml Vial IV PUSH Q2M PRN Opiate Reversal Ondansetron HCl 4 mg 09/08/21 02:05 09/09/21 16:10 Ondansetron Inj 4 Mg/2 Ml Vial IV PUSH 4 mg Q4H PRN Administration Nausea Radiology Results: ITS Impressions Abdomen/Pelvis CT 09/08/21 08:06 IMPRESSION: Partial small bowel obstruction is suggested in the pelvic area Mild free fluid in the dependent pelvis Diverticulosis of the sigmoid colon; no evidence of diverticulitis Nonspecific mild bilateral hydronephrosis Cholelithiasis T12 compression fracture deformity 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
[2021-09-10] MEDS: SODIUM CHLORIDE 0.9% IV 1,000 ML 999 ML IV CONT (10:59)
[2021-09-10] MEDS: KCL 20MEQ/0.9% SOD CHL 1,000 ML 100 ML IV CONT (12:18)
[2021-09-10 12:39] LABS: Alanine Aminotransferase 6 U/L (6-35); Albumin Level 2.8 g/dL (3.5-5.1); Alkaline Phosphatase 43 U/L (38-126); Anion Gap 5 mmol/L (8-16); Aspartate Amino Transferase 21 U/L (14-36); Bilirubin,Total 0.7 mg/dL (0.2-1.3); Blood Urea Nitrogen 36 mg/dL (7-17); Calcium 7.4 mg/dL (8.4-10.2); Carbon Dioxide 25 mmol/L (22-30); Chloride 107 mmol/L (98-107); Estimated CRCL calculation 28 ml/min; Estimated Glomerular Filt Rate 39; Glucose 113 mg/dL (65-110); Magnesium 1.9 mg/dL (1.6-2.3); Potassium 4.2 mmol/L (3.4-5.0); Sodium 137 mmol/L (137-145)
--- NOTE | 2021-09-10 12:43 | PM.IMPN ---
Progress Note: A&P Assessment and Plan (1) Small bowel obstruction: Code(s): K56.609 - Unspecified intestinal obstruction, unspecified as to partial versus complete obstruction Status: Deleted Assessment and Plan: Admit to regular medical floor Strict NPO NG in place to low intermittent suction Supportive care Follow surgery recommendations 09/08/2021 interval history: patient is a 81-year-old female with remote history right ovary rupture over 50 years ago patient presented emergency department with abdominal pain nausea or vomiting, CT scan of the abdomen showed partial small bowel obstruction, patient seen by surgery service recommending conservative management with NG tube to decompress, bowel rest IV hydration and pain management, will continue to monitor as patient's symptoms improved with flatus and possibly BM, will continue to monitor. 09/09/2021 interval history: patient is a 81-year-old female with remote history right ovary rupture over 50 years ago patient presented emergency department with abdominal pain nausea or vomiting, CT scan of the abdomen showed partial small bowel obstruction, patient seen by surgery service recommending conservative management with NG tube to decompress, bowel rest IV hydration and pain management, today patient had a care it showed resolution of the small-bowel obstruction and to further evaluate small-bowel follow-through series is ordered, will follow up, will continue to monitor as patient's symptoms improve, patient seen by surgery service further recommendation to follow. 09/10/2021 interval history: patient is a 81-year-old female with remote history right ovary rupture over 50 years ago patient presented emergency department with abdominal pain nausea or vomiting, CT scan of the abdomen showed partial small bowel obstruction, on 09/08 patient was seen by surgery service recommending conservative management with NG tube to decompress, bowel rest IV hydration and pain management, on 09/09 patient had small-bowel follow-through series which showed persistent small bowel obstruction and bowel infarction and surgeon recommend surgical repair a small-bowel resection and anastomosis, today patient pain is better denies any nausea or vomiting, not passing any gas, patient has been NPO for some few days, surgeon has started TPN, will continue to monitor as patient's symptoms improve, patient seen by surgery service further recommendation to follow. (2) Acute UTI: Code(s): N39.0 - Urinary tract infection, site not specified Status: Deleted Assessment and Plan: Started on Rocephin Await cultures (3) Hypothyroidism: Code(s): E03.9 - Hypothyroidism, unspecified Status: Acute Assessment and Plan: Unchanged (4) Hypertension: Code(s): I10 - Essential (primary) hypertension Status: Acute Assessment and Plan: Continue to monitor Hydralazine 10 mg IV push for systolic of 150 or greater (5) Hyperlipidemia: Code(s): E78.5 - Hyperlipidemia, unspecified Status: Acute Assessment and Plan: Unchanged Subjective Date/time seen: 09/10/21 12:43 09/10/2021 interval history: patient is a 81-year-old female with remote history right ovary rupture over 50 years ago patient presented emergency department with abdominal pain nausea or vomiting, CT scan of the abdomen showed partial small bowel obstruction, on 09/08 patient was seen by surgery service recommending conservative management with NG tube to decompress, bowel rest IV hydration and pain management, on 09/09 patient had small-bowel follow-through series which showed persistent small bowel obstruction and bowel infarction and surgeon recommend surgical repair a small-bowel resection and anastomosis, today patient pain is better denies any nausea or vomiting, not passing any gas, patient has been NPO for some few days, surgeon has started TPN, will contin
[2021-09-10 12:44] LABS: Partial Thromboplastin Time 42.3 SECONDS (22.3-36.8)
[2021-09-10 12:46] LABS: Transferrin 166 mg/dL (206-381)
[2021-09-10 14:00] VITALS: BP 132/76; PULSE 91; RESP 20; TEMP 36.4; O2SAT 92
[2021-09-10] MEDS: FAT EMULSIONS IV 20% 250 ML 20.83 ML IVPB (16:32)
[2021-09-10] MEDS: AMINO ACIDS 5%/D15W/E-LYTES/CA 2,000 ML with MULTIVITAMINS-12 INJ VIAL 1 2.5 ML, MULTIV... 40 ML IV CONT (16:32)
[2021-09-10] MEDS: CENTRAL LINE FLUSH 10 ML IV PUSH (20:29)
[2021-09-10 22:00] VITALS: BP 142/60; PULSE 78; RESP 18; TEMP 36.5; O2SAT 92
[2021-09-10 23:40] LABS: Glucose Point of Care 123 mg/dl (65-105)
[2021-09-11] MEDS: KCL 20MEQ/0.9% SOD CHL 1,000 ML 100 ML IV CONT ×2 (05:40→17:01)
[2021-09-11] MEDS: CENTRAL LINE FLUSH 10 ML IV PUSH ×3 (05:43→22:00)
[2021-09-11 05:46] LABS: Glucose Point of Care 124 mg/dl (65-105)
[2021-09-11 05:50] LABS: Hematocrit 30.3 % (37.0-47.0); Hemoglobin 9.7 g/dL (12.0-15.0); Mean Corpuscular Hemoglobin 29.6 pg (26-34); Mean Corpuscular Volume 92.4 fl (80-100); Mean Platelet Volume 9.6 fl (7.4-10.4); Platelet Count Result 98 k/mm3 (150-375); Red Blood Count 3.28 M/mm3 (4.2-5.4); Red Cell Distribution Width 13.2 % (11.5-14.5)
[2021-09-11 05:58] LABS: Anion Gap 1 mmol/L (8-16); Blood Urea Nitrogen 30 mg/dL (7-17); Calcium 7.7 mg/dL (8.4-10.2); Carbon Dioxide 29 mmol/L (22-30); Chloride 106 mmol/L (98-107); Estimated CRCL calculation 39 ml/min; Estimated Glomerular Filt Rate 60; Glucose 119 mg/dL (65-110); Magnesium 1.8 mg/dL (1.6-2.3); Phosphorus 2.1 mg/dL (2.5-4.5); Potassium 4.3 mmol/L (3.4-5.0); Sodium 136 mmol/L (137-145)
[2021-09-11 06:00] VITALS: BP 149/66; PULSE 81; RESP 16; TEMP 36.2; O2SAT 91
[2021-09-11] MEDS: FAT EMULSIONS IV 20% 250 ML 20.83 ML IVPB (08:49)
[2021-09-11] MEDS: FAMOTIDINE 20 MG/2 ML VIAL IV PUSH ×2 (08:50→21:55)
[2021-09-11 10:38] LABS: Triglycerides 185 mg/dL (<150)
--- NOTE | 2021-09-11 11:47 | PM.PNGS ---
Progress Note: A&P Assessment and Plan (1) Small bowel obstruction with strangulation or infarction: Status: Acute Assessment and Plan: still with postoperative ileus which is expected. Continue NPO, NG tube, IV fluids. Recheck daily exam labs. She is comfortable on p.r.n. analgesics. Will likely take several more days for bowel function to return. (2) Protein-calorie malnutrition, moderate: Code(s): E44.0 - Moderate protein-calorie malnutrition Status: Acute Assessment and Plan: Continue TPN for reasons described above. Subjective Subjective Date/Time Seen: 09/11/21 11:47 Post Op day: 2 Patient reports: no new complaints, no flatus, no bowel movement and afebrile Exam GI: Inspection: distended and incision ( Dry and healing well) GI Palp: Yes Soft to palpation and Yes Tenderness to palpation present (GI) Auscultation: absent bowel sounds Objective Data Vital Signs Vital Signs: Vital Signs - 24 hr 09/10/21 14:00 09/10/21 22:00 09/11/21 06:00 Temperature 36.4 C 36.5 C 36.2 C L Pulse Rate 91 78 81 Respiratory Rate 20 18 16 Blood Pressure 132/76 142/60 H 149/66 H Pulse Oximetry 92 92 91 Intake/Output Intake/Output: Intake & Output 09/08/21 09/09/21 09/10/21 09/11/21 23:59 23:59 23:59 23:59 Intake Total 1200 1150 7340 540 Output Total 2180 550 600 Balance 1200 -1030 6790 -60 Meds/Results Medications: Active Medications Generic Name Dose Route Start Last Admin Trade Name Freq PRN Reason Stop Dose Admin Enoxaparin Sodium 40 mg 09/08/21 09:00 09/11/21 08:12 Enoxaparin 40 Mg/0.4 Ml Syringe SUB-Q Not Given DAILY EMMA Famotidine 20 mg 09/09/21 21:00 09/11/21 08:50 Famotidine 20 Mg/2 Ml Vial IV PUSH 20 mg Q12HR EMMA Administration Ibuprofen 400 mg in 100 mls @ 200 mls/hr 09/09/21 20:41 Caldolor 400 Mg/100 Ml IVPB Q6H PRN Pain Rated 1-3 Piperacillin Sod/Tazobactam Sod 2.25 gm in 50 mls @ 100 mls/hr 09/10/21 00:00 09/11/21 05:40 Zosyn 2.25 Gm/D5w 50 Ml IVPB 100 mls/hr Q6HR EMMA Administration Potassium Chloride/Sodium Chloride 1,000 mls @ 100 mls/hr 09/10/21 09:05 09/11/21 05:40 Kcl 20 Meq/Ns IV CONT 100 mls/hr .Q10H EMMA Administration Dextrose 1,000 mls @ 50 mls/hr 09/10/21 10:52 Dextrose 10% IV CONT .Q20H PRN if PN is interrupted Multivitamins 2.5 ml/ 2,005 mls @ 40 mls/hr 09/10/21 10:55 09/10/21 16:32 Multivitamins 2.5 ml/ Amino IV CONT 40 mls/hr Acids/Electrolytes/Dextrose .Q24H EMMA Administration Protocol Fat Emulsion Intravenous 250 mls @ 20.833 mls/hr 09/10/21 10:55 09/11/21 08:49 Lipids 20% IVPB 20.83 mls/hr QAM EMMA Administration Insulin Human Regular 0 units 09/10/21 12:00 09/11/21 05:40 Insulin Human Regular (*Bkc) 100 Units/Ml SUB-Q Not Given Q6HR [facility] Protocol Morphine Sulfate 2 mg 09/09/21 20:41 09/10/21 21:07 Morphine Sulfate (*Crx) 2 Mg/Ml Inj IV PUSH 2 mg Q2H PRN Administration Pain Rated 4-6 Morphine Sulfate 4 mg 09/09/21 20:41 Morphine Sulfate (*Crx) 4 Mg/Ml Inj IV PUSH Q2H PRN Pain Rated 7-10 Naloxone HCl 0.1 mg 09/09/21 20:41 Naloxone Hcl 0.4 Mg/Ml Vial IV PUSH Q2M PRN Opiate Reversal Ondansetron HCl 4 mg 09/08/21 02:05 09/09/21 16:10 Ondansetron Inj 4 Mg/2 Ml Vial IV PUSH 4 mg Q4H PRN Administration Nausea Sodium Chloride 10 ml 09/10/21 22:00 09/11/21 05:43 Central Line Flush IV PUSH 10 ml Q8HR EMMA Administration Sodium Chloride 10 ml 09/10/21 14:30 Central Line Flush IV PUSH PRN PRN with TPN bag changes Sodium Chloride 20 ml 09/10/21 14:30 Central Line Flush IV PUSH PRN PRN after blood draws Radiology Results: ITS Impressions Abdomen/Pelvis CT 09/08/21 08:06 IMPRESSION: Partial small bowel obstruction is suggested in the pelvic area Mild free fluid in the dependent pelvis Diverticulosis of the sigmoid colon
[2021-09-11] MEDS: AMINO ACIDS 5%/D15W/E-LYTES/CA 2,000 ML with MULTIVITAMINS-12 INJ VIAL 1 2.5 ML, MULTIV... 40 ML IV CONT (12:03)
[2021-09-11 12:08] LABS: Glucose Point of Care 124 mg/dl (65-105)
--- NOTE | 2021-09-11 13:23 | PM.IMPN ---
Progress Note: A&P Assessment and Plan (1) Small bowel obstruction: Code(s): K56.609 - Unspecified intestinal obstruction, unspecified as to partial versus complete obstruction Status: Deleted Assessment and Plan: Admit to regular medical floor Strict NPO NG in place to low intermittent suction Supportive care Follow surgery recommendations 09/08/2021 interval history: patient is a 81-year-old female with remote history right ovary rupture over 50 years ago patient presented emergency department with abdominal pain nausea or vomiting, CT scan of the abdomen showed partial small bowel obstruction, patient seen by surgery service recommending conservative management with NG tube to decompress, bowel rest IV hydration and pain management, will continue to monitor as patient's symptoms improved with flatus and possibly BM, will continue to monitor. 09/09/2021 interval history: patient is a 81-year-old female with remote history right ovary rupture over 50 years ago patient presented emergency department with abdominal pain nausea or vomiting, CT scan of the abdomen showed partial small bowel obstruction, patient seen by surgery service recommending conservative management with NG tube to decompress, bowel rest IV hydration and pain management, today patient had a care it showed resolution of the small-bowel obstruction and to further evaluate small-bowel follow-through series is ordered, will follow up, will continue to monitor as patient's symptoms improve, patient seen by surgery service further recommendation to follow. 09/10/2021 interval history: patient is a 81-year-old female with remote history right ovary rupture over 50 years ago patient presented emergency department with abdominal pain nausea or vomiting, CT scan of the abdomen showed partial small bowel obstruction, on 09/08 patient was seen by surgery service recommending conservative management with NG tube to decompress, bowel rest IV hydration and pain management, on 09/09 patient had small-bowel follow-through series which showed persistent small bowel obstruction and bowel infarction and surgeon recommend surgical repair a small-bowel resection and anastomosis, today patient pain is better denies any nausea or vomiting, not passing any gas, patient has been NPO for some few days, surgeon has started TPN, will continue to monitor as patient's symptoms improve, patient seen by surgery service further recommendation to follow. 09/11/2021 interval history: patient is a 81-year-old female with remote history right ovary rupture over 50 years ago patient presented emergency department with abdominal pain nausea or vomiting, CT scan of the abdomen showed partial small bowel obstruction, on 09/08 patient was seen by surgery service recommending conservative management with NG tube to decompress, bowel rest IV hydration and pain management, on 09/09 patient had small-bowel follow-through series which showed persistent small bowel obstruction and bowel infarction and surgeon recommend surgical repair with small-bowel resection and anastomosis, patient continue to have postoperative ileus, today patient pain is better denies any nausea or vomiting, not passing any gas, patient has been NPO for some few days, on 09/10 surgeon has started TPN, will continue to monitor as patient's symptoms improve, will encourage patient to ambulate this will help with ileus, patient seen by surgery service further recommendation to follow. (2) Acute UTI: Code(s): N39.0 - Urinary tract infection, site not specified Status: Deleted Assessment and Plan: Started on Rocephin Await cultures (3) Hypothyroidism: Code(s): E03.9 - Hypothyroidism, unspecified Status: Acute Assessment and Plan: Unchanged (4) Hypertension: Code(s): I10 - Essential (primary) hypertension Status: Acute Assessment and Plan: Continue to monitor
[2021-09-11 14:00] VITALS: BP 158/72; PULSE 77; RESP 20; TEMP 36.3; O2SAT 92
[2021-09-11] MEDS: MORPHINE SULFATE (*CRX) 4 MG/ML INJ IV PUSH (17:11)
[2021-09-11 18:05] LABS: Glucose Point of Care 145 mg/dl (65-105)
[2021-09-11 22:00] VITALS: BP 170/79; PULSE 65; RESP 18; TEMP 36.2; O2SAT 91
[2021-09-12 00:35] LABS: Glucose Point of Care 113 mg/dl (65-105)
[2021-09-12] MEDS: MORPHINE SULFATE (*CRX) 4 MG/ML INJ IV PUSH ×2 (01:26→22:08)
[2021-09-12] MEDS: MORPHINE SULFATE (*CRX) 2 MG/ML INJ IV PUSH (05:32)
[2021-09-12 06:00] VITALS: BP 176/76; PULSE 76; RESP 16; TEMP 36.2; O2SAT 93
[2021-09-12 06:00] LABS: Basophils Percent Auto 0.4 % (0.2-1.2); Eosinophils Absolute Auto 0.2 K/mm3 (0-0.3); Eosinophils Percent Auto 2.9 % (0-4.4); Hematocrit 30.3 % (37.0-47.0); Hemoglobin 9.7 g/dL (12.0-15.0); Immature Granulocyte Absolute 0.05 K/mm3 (0.00-0.031); Immature Granulocyte Percent A 0.6 % (0-0.5); Lymphocytes Absolute Auto 1.94 K/mm3 (0.9-3.2); Lymphocytes Percent Auto 24.3 % (18.3-44.2); Mean Corpuscular Hemoglobin 29.4 pg (26-34); Mean Corpuscular Volume 91.8 fl (80-100); Monocytes Absolute Auto 0.4 K/mm3 (0.1-0.6); Monocytes Percent Auto 5.5 % (2.6-8.5); Neutrophils Absolute Auto 5.3 K/mm3 (1.3-6.7); Neutrophils Percent Auto 66.3 % (45.5-73.1); Platelet Count Result 108 k/mm3 (150-375); Red Cell Distribution Width 12.8 % (11.5-14.5)
[2021-09-12 06:01] LABS: Glucose Point of Care 128 mg/dl (65-105)
[2021-09-12 06:16] LABS: Alanine Aminotransferase 6 U/L (6-35); Albumin Level 2.9 g/dL (3.5-5.1); Alkaline Phosphatase 46 U/L (38-126); Anion Gap 2 mmol/L (8-16); Aspartate Amino Transferase 21 U/L (14-36); Bilirubin,Total 0.4 mg/dL (0.2-1.3); Blood Urea Nitrogen 18 mg/dL (7-17); Carbon Dioxide 28 mmol/L (22-30); Chloride 101 mmol/L (98-107); Estimated CRCL calculation 44 ml/min; Estimated Glomerular Filt Rate > 60; Glucose 133 mg/dL (65-110); Magnesium 1.7 mg/dL (1.6-2.3); Phosphorus 2.8 mg/dL (2.5-4.5); Potassium 4.3 mmol/L (3.4-5.0); Sodium 131 mmol/L (137-145)
[2021-09-12 06:20] LABS: Transferrin 169 mg/dL (206-381)
[2021-09-12] MEDS: CENTRAL LINE FLUSH 10 ML IV PUSH ×3 (06:42→22:00)
[2021-09-12 06:48] LABS: Partial Thromboplastin Time 35.1 SECONDS (22.3-36.8)
[2021-09-12] MEDS: ENOXAPARIN 40 MG/0.4 ML SYRINGE SUB-Q (08:22)
[2021-09-12] MEDS: FAMOTIDINE 20 MG/2 ML VIAL IV PUSH ×2 (08:22→20:49)
[2021-09-12] MEDS: KCL 20MEQ/0.9% SOD CHL 1,000 ML 100 ML IV CONT (10:26)
[2021-09-12] MEDS: FAT EMULSIONS IV 20% 250 ML 20.83 ML IVPB (10:31)
[2021-09-12] MEDS: AMINO ACIDS 5%/D15W/E-LYTES/CA 2,000 ML with MULTIVITAMINS-12 INJ VIAL 1 2.5 ML, MULTIV... 40 ML IV CONT (10:33)
[2021-09-12 11:51] LABS: Glucose Point of Care 132 mg/dl (65-105)
--- NOTE | 2021-09-12 12:56 | PM.PNGS ---
Progress Note: A&P Assessment and Plan (1) Small bowel obstruction with strangulation or infarction: Status: Acute Assessment and Plan: Awaiting return of bowel function. She is still dealing with a post-op ileus as expected. Will continue with NG tube, NPO, and IV fluids with TPN. Discontinue Guzman catheter today. Encouraged to try increasing activity and walk the halls. Try sitting up in a chair today if tolerated. Repeat labs tomorrow. (2) Protein-calorie malnutrition, moderate: Code(s): E44.0 - Moderate protein-calorie malnutrition Status: Acute Assessment and Plan: Continue TPN for nutrition. Additional Plan I have discussed the plan of care with Dr. Reese. Subjective Subjective Date/Time Seen: 09/12/21 10:56 Post Op day: 3 (Small bowel resection) Patient reports: pain is less, no flatus, no bowel movement and afebrile Interval history: Patient seen and examined. Chart reviewed since last exam. She reports that her abdominal pain is improving and she is feeling very comfortable this morning. She had IV Morphine earlier for back pain that she thought was related to wrinkles in the sheets and sleeping in the bed. She is still not passing gas. She reports getting up and walking a few times yesterday but has not been up yet today. She reports feeling tired this morning as well. No other complaints at this time. Review of Systems Review of Systems: All systems reviewed & are unremarkable except as noted in HPI and below Constitutional: Constitutional: Reports as per HPI, Reports no additional constitutional complaints, Denies chills and Denies fever(s) Cardiovascular: Cardiovascular: Reports no additional cardiovascular complaints, Denies chest pain and Denies leg edema Respiratory: Respiratory: Reports no additional respiratory complaints, Denies cough and Denies dyspnea Gastrointestinal: Gastrointestinal: Reports as per HPI and Reports no additional gastrointestinal complaints Neurologic: Reports system reviewed and no additional complaints, except as documented, Denies Abnormal speech present and Denies focal weakness Exam Const: General: comfortable, alert and awake Orientation/consciousness: patient oriented x3 GI: Inspection: non-distended and incision (Incision with scant serosang drainage at the bottom, no erythema) GI Palp: Yes Soft to palpation and Yes Tenderness to palpation present (GI) Auscultation: High-pitched bowel sounds present ( very few tinkling sounds, but very hypoactive) Neuro: General: moves all extremities and no focal motor deficits Extrem: General: no calf tenderness and no edema Psych: Insight: Good insight present (Psych) Judgement: Good judgement present (Psych) Objective Data Vital Signs Vital Signs: Vital Signs - 24 hr 09/11/21 14:00 09/11/21 22:00 09/12/21 06:00 Temperature 97.4 F L 97.2 F L 97.1 F L Pulse Rate 77 65 76 Respiratory Rate 20 18 16 Blood Pressure 158/72 H 170/79 H 176/76 H Pulse Oximetry 92 91 93 Intake/Output Intake/Output: Intake & Output 09/09/21 09/10/21 09/11/21 09/12/21 23:59 23:59 23:59 23:59 Intake Total 1150 7340 4425 3033 Output Total 2180 550 1750 1400 Balance -1030 6790 2675 1633 Meds/Results Medications: Active Medications Generic Name Dose Route Start Last Admin Trade Name Freq PRN Reason Stop Dose Admin Enoxaparin Sodium 40 mg 09/08/21 09:00 09/12/21 08:22 Enoxaparin 40 Mg/0.4 Ml Syringe SUB-Q 40 mg DAILY EMMA Administration Famotidine 20 mg 09/09/21 21:00 09/12/21 08:22 Famotidine 20 Mg/2 Ml Vial IV PUSH 20 mg Q12HR EMMA Administration Ibuprofen 400 mg in 100 mls @ 200 mls/hr 09/09/21 20:41 Caldolor 400 Mg/100 Ml IVPB Q6H PRN Pain Rated 1-3 Piperacillin Sod/Tazobactam Sod 2.25 gm in 50 mls @ 100 mls/hr 09/10/21 00:00 09/12/21 12:27 Zosyn 2.25 Gm/D5w 50 Ml IVPB 100 mls/hr Q6HR EMMA Administration Potassium Chloride/Sodium Chloride 1,000 mls
[2021-09-12 12:58] VITALS: BMI 29.0
[2021-09-12 13:34] VITALS: BP 146/97; PULSE 76; RESP 16; TEMP 36.3; O2SAT 98
--- NOTE | 2021-09-12 17:41 | PM.IMPN ---
Progress Note: A&P Assessment and Plan (1) Small bowel obstruction: Code(s): K56.609 - Unspecified intestinal obstruction, unspecified as to partial versus complete obstruction Status: Deleted Assessment and Plan: Admit to regular medical floor Strict NPO NG in place to low intermittent suction Supportive care Follow surgery recommendations 09/08/2021 interval history: patient is a 81-year-old female with remote history right ovary rupture over 50 years ago patient presented emergency department with abdominal pain nausea or vomiting, CT scan of the abdomen showed partial small bowel obstruction, patient seen by surgery service recommending conservative management with NG tube to decompress, bowel rest IV hydration and pain management, will continue to monitor as patient's symptoms improved with flatus and possibly BM, will continue to monitor. 09/09/2021 interval history: patient is a 81-year-old female with remote history right ovary rupture over 50 years ago patient presented emergency department with abdominal pain nausea or vomiting, CT scan of the abdomen showed partial small bowel obstruction, patient seen by surgery service recommending conservative management with NG tube to decompress, bowel rest IV hydration and pain management, today patient had a care it showed resolution of the small-bowel obstruction and to further evaluate small-bowel follow-through series is ordered, will follow up, will continue to monitor as patient's symptoms improve, patient seen by surgery service further recommendation to follow. 09/10/2021 interval history: patient is a 81-year-old female with remote history right ovary rupture over 50 years ago patient presented emergency department with abdominal pain nausea or vomiting, CT scan of the abdomen showed partial small bowel obstruction, on 09/08 patient was seen by surgery service recommending conservative management with NG tube to decompress, bowel rest IV hydration and pain management, on 09/09 patient had small-bowel follow-through series which showed persistent small bowel obstruction and bowel infarction and surgeon recommend surgical repair a small-bowel resection and anastomosis, today patient pain is better denies any nausea or vomiting, not passing any gas, patient has been NPO for some few days, surgeon has started TPN, will continue to monitor as patient's symptoms improve, patient seen by surgery service further recommendation to follow. 09/11/2021 interval history: patient is a 81-year-old female with remote history right ovary rupture over 50 years ago patient presented emergency department with abdominal pain nausea or vomiting, CT scan of the abdomen showed partial small bowel obstruction, on 09/08 patient was seen by surgery service recommending conservative management with NG tube to decompress, bowel rest IV hydration and pain management, on 09/09 patient had small-bowel follow-through series which showed persistent small bowel obstruction and bowel infarction and surgeon recommend surgical repair with small-bowel resection and anastomosis, patient continue to have postoperative ileus, today patient pain is better denies any nausea or vomiting, not passing any gas, patient has been NPO for some few days, on 09/10 surgeon has started TPN, will continue to monitor as patient's symptoms improve, will encourage patient to ambulate this will help with ileus, patient seen by surgery service further recommendation to follow. 09/12/2021 interval history: patient is a 81-year-old female with remote history right ovary rupture over 50 years ago patient presented emergency department with abdominal pain nausea or vomiting, CT scan of the abdomen showed partial small bowel obstruction, on 09/08 patient was seen by surgery service recommending conservative management with NG tube to decompress, bowel rest IV hydration and pain management, on 09/09 patient had small-bowel follow
[2021-09-12] MEDS: hydrALAZINE HCL 20 MG/ML VIAL 10 MG IV PUSH (20:48)
[2021-09-12 21:30] VITALS: BP 161/79; PULSE 73; RESP 18; TEMP 36.9; O2SAT 96
[2021-09-13 00:04] LABS: Glucose Point of Care 127 mg/dl (65-105)
[2021-09-13] MEDS: MORPHINE SULFATE (*CRX) 4 MG/ML INJ IV PUSH ×2 (02:26→15:40)
[2021-09-13 05:25] VITALS: BP 152/67; PULSE 74; RESP 18; TEMP 37; O2SAT 97
[2021-09-13 05:46] LABS: Glucose Point of Care 83 mg/dl (65-105)
[2021-09-13 05:56] LABS: Hematocrit 31.6 % (37.0-47.0); Hemoglobin 10.3 g/dL (12.0-15.0); Immature Platelet Fraction Pct 2.8 % (0.9-11.2); Mean Corpuscular HGB Conc 32.6 g/dl (32-36); Mean Corpuscular Hemoglobin 29.2 pg (26-34); Mean Corpuscular Volume 89.5 fl (80-100); Mean Platelet Volume 9.6 fl (7.4-10.4); Platelet Count Result 146 k/mm3 (150-375); Red Blood Count 3.53 M/mm3 (4.2-5.4); Red Cell Distribution Width 12.8 % (11.5-14.5); White Blood Count 8.4 K/mm3 (4.5-10.0)
[2021-09-13 05:59] LABS: Anion Gap 4 mmol/L (8-16); Blood Urea Nitrogen 19 mg/dL (7-17); Calcium 8.2 mg/dL (8.4-10.2); Carbon Dioxide 28 mmol/L (22-30); Chloride 98 mmol/L (98-107); Estimated CRCL calculation 44 ml/min; Estimated Glomerular Filt Rate > 60; Glucose 108 mg/dL (65-110); Magnesium 1.7 mg/dL (1.6-2.3); Phosphorus 3.7 mg/dL (2.5-4.5); Potassium 4.2 mmol/L (3.4-5.0); Sodium 130 mmol/L (137-145); Triglycerides 150 mg/dL (<150)
[2021-09-13 08:00] VITALS: PULSE 74; RESP 17; O2SAT 94
[2021-09-13] MEDS: KCL 20MEQ/0.9% SOD CHL 1,000 ML 100 ML IV CONT (08:44)
[2021-09-13] MEDS: ENOXAPARIN 40 MG/0.4 ML SYRINGE SUB-Q (09:00)
--- NOTE | 2021-09-13 09:13 | PC.NURSE ---
Pt ambulated in the hallway assisted per staff.
[2021-09-13] MEDS: hydrALAZINE HCL 20 MG/ML VIAL 10 MG IV PUSH ×2 (09:40→21:44)
[2021-09-13] MEDS: FAMOTIDINE 20 MG/2 ML VIAL IV PUSH ×2 (09:40→21:44)
[2021-09-13] MEDS: FAT EMULSIONS IV 20% 250 ML 20.83 ML IVPB (09:41)
[2021-09-13] MEDS: AMINO ACIDS 5%/D15W/E-LYTES/CA 2,000 ML with MULTIVITAMINS-12 INJ VIAL 1 2.5 ML, MULTIV... 40 ML IV CONT (09:41)
--- NOTE | 2021-09-13 10:40 | PM.PNGS ---
Progress Note: A&P Assessment and Plan (1) Small bowel obstruction with strangulation or infarction: Status: Acute Assessment and Plan: await return of bowel function. Continue NPO, NG, IVF, prn analgesics, labs. Ambulate, continue daily dressing changes. (2) Protein-calorie malnutrition, moderate: Code(s): E44.0 - Moderate protein-calorie malnutrition Status: Acute Assessment and Plan: continue TPN until bowel function returns. Subjective Subjective Date/Time Seen: 09/13/21 10:40 Post Op day: 4 Patient reports: no new complaints, no flatus, no bowel movement and afebrile Exam GI: Inspection: non-distended and incision (healing well, dry with minimal drainage.) GI Palp: Yes Soft to palpation, Yes Tenderness to palpation present (GI) (mild, incisional), No Hernia present and No Palpable mass present Auscultation: absent bowel sounds Objective Data Vital Signs Vital Signs: Vital Signs - 24 hr 09/12/21 13:34 09/12/21 21:30 09/13/21 05:25 Temperature 36.3 C L 36.9 C 37.0 C Pulse Rate 76 73 74 Respiratory Rate 16 18 18 Blood Pressure 146/97 H 161/79 H 152/67 H Pulse Oximetry 98 96 97 Intake/Output Intake/Output: Intake & Output 09/10/21 09/11/21 09/12/21 09/13/21 23:59 23:59 23:59 23:59 Intake Total 7340 4425 4383 2075 Output Total 550 1750 4025 800 Balance 6790 2675 358 1275 Meds/Results Medications: Active Medications Generic Name Dose Route Start Last Admin Trade Name Freq PRN Reason Stop Dose Admin Enoxaparin Sodium 40 mg 09/08/21 09:00 09/12/21 08:22 Enoxaparin 40 Mg/0.4 Ml Syringe SUB-Q 40 mg DAILY EMMA Administration Famotidine 20 mg 09/09/21 21:00 09/13/21 09:40 Famotidine 20 Mg/2 Ml Vial IV PUSH 20 mg Q12HR EMMA Administration Hydralazine HCl 10 mg 09/12/21 13:54 09/13/21 09:40 Hydralazine Hcl 20 Mg/Ml Vial IV PUSH 10 mg Q8H PRN Administration Blood Pressure - High Ibuprofen 400 mg in 100 mls @ 200 mls/hr 09/09/21 20:41 Caldolor 400 Mg/100 Ml IVPB Q6H PRN Pain Rated 1-3 Potassium Chloride/Sodium Chloride 1,000 mls @ 60 mls/hr 09/10/21 09:05 09/13/21 08:44 Kcl 20 Meq/Ns IV CONT 100 mls/hr .[id number] EMMA Administration Dextrose 1,000 mls @ 50 mls/hr 09/10/21 10:52 Dextrose 10% IV CONT .Q20H PRN if PN is interrupted Multivitamins 2.5 ml/ 2,005 mls @ 40 mls/hr 09/10/21 10:55 09/13/21 09:41 Multivitamins 2.5 ml/ Amino IV CONT 40 mls/hr Acids/Electrolytes/Dextrose .Q24H EMMA Administration Protocol Fat Emulsion Intravenous 250 mls @ 20.833 mls/hr 09/10/21 10:55 09/13/21 09:41 Lipids 20% IVPB 20.83 mls/hr QAM EMMA Administration Piperacillin/Tazobactam/Dextrose 3.375 gm in 50 mls @ 100 mls/hr 09/13/21 06:00 09/13/21 05:25 Zosyn 3.375 Gm/D5w 50ml Pm IVPB 100 mls/hr Q6HR EMMA Administration Insulin Human Regular 0 units 09/10/21 12:00 09/13/21 07:47 Insulin Human Regular (*Bkc) 100 Units/Ml SUB-Q Not Given Q6HR [facility] Protocol Metoprolol Tartrate 5 mg 09/12/21 13:55 Metoprolol Tartrate Inj 5 Mg/5 Ml Vial IV PUSH ONCE PRN Heart Rate- High Morphine Sulfate 2 mg 09/09/21 20:41 09/12/21 05:32 Morphine Sulfate (*Crx) 2 Mg/Ml Inj IV PUSH 2 mg Q2H PRN Administration Pain Rated 4-6 Morphine Sulfate 4 mg 09/09/21 20:41 09/13/21 02:26 Morphine Sulfate (*Crx) 4 Mg/Ml Inj IV PUSH 4 mg Q2H PRN Administration Pain Rated 7-10 Naloxone HCl 0.1 mg 09/09/21 20:41 Naloxone Hcl 0.4 Mg/Ml Vial IV PUSH Q2M PRN Opiate Reversal Ondansetron HCl 4 mg 09/08/21 02:05 09/09/21 16:10 Ondansetron Inj 4 Mg/2 Ml Vial IV PUSH 4 mg Q4H PRN Administration Nausea Sodium Chloride 10 ml 09/10/21 22:00 09/13/21 07:48 Central Line Flush IV PUSH Not Given Q8HR EMMA Sodium Chloride 10 ml 09/10/21 14:30 Central Line Flush IV PUSH PRN PRN with TPN bag changes Sodium Chlor
--- NOTE | 2021-09-13 12:04 | PCNFU ---
Nutrition Follow-Up Complete: Altered GI function related to small bowel obstruction as evidenced by current diagnosis, hypoactive bowel sounds and need for TPN for nutrition. Goal:Advance to PO diet when appropriate Pt is not progressing to goal at this time. Continues on TPN to provide full nutrition. Pt current nutrition is TPN:clinimix E 5/15 at 40ml/hr. Nutrition recommendation: Continue with current plan of care. Last recorded weight is 69.6 kg - stable. Bowel Motility: Hypoactive bowel sounds, no flatus, no BM Labs Reviewed: Hgb:10.3, HCT:31.6, NA:130, BUN:19 Meds Noted: lovenox Skin: WNL Additional Notes: TPN initiated yesterday, running Clinimix E 5/15 at 40ml/hr to provide 1182kcals, 48g PRO. 250ml 20% lipids also running for an additional 500kcals. Sufficient to meet nutritional needs. Agree with current diet orders at this time. Monitor TPN, wt, labs. Follow up every sunday and sunday per protocol.
[2021-09-13 12:18] LABS: Glucose Point of Care 142 mg/dl (65-105)
[2021-09-13 14:00] VITALS: BP 150/76; PULSE 74; RESP 17; TEMP 35.7; O2SAT 94
[2021-09-13] MEDS: ONDANSETRON INJ 4 MG/2 ML VIAL IV PUSH (15:39)
[2021-09-13 21:42] VITALS: BP 156/70; PULSE 71; RESP 18; TEMP 36.7; O2SAT 98
[2021-09-13] MEDS: CENTRAL LINE FLUSH 10 ML IV PUSH (21:44)
[2021-09-14] MEDS: KCL 20MEQ/0.9% SOD CHL 1,000 ML 100 ML IV CONT ×2 (00:22→09:10)
[2021-09-14 02:44] LABS: Glucose Point of Care 131 mg/dl (65-105)
[2021-09-14 05:28] VITALS: BP 141/61; PULSE 74; RESP 18; TEMP 36.7; O2SAT 97
[2021-09-14] MEDS: CENTRAL LINE FLUSH 10 ML IV PUSH ×3 (05:40→20:12)
[2021-09-14 06:08] LABS: Anion Gap 8 mmol/L (8-16); Blood Urea Nitrogen 22 mg/dL (7-17); Calcium 8.2 mg/dL (8.4-10.2); Carbon Dioxide 25 mmol/L (22-30); Chloride 101 mmol/L (98-107); Estimated CRCL calculation 46 ml/min; Estimated Glomerular Filt Rate > 60; Glucose 108 mg/dL (65-110); Phosphorus 3.8 mg/dL (2.5-4.5); Potassium 4.3 mmol/L (3.4-5.0); Sodium 134 mmol/L (137-145)
[2021-09-14] MEDS: IBUPROFEN IV 400 MG in SODIUM CHLORIDE 0.9% IV 100 ML 200 MG IVPB (06:21)
[2021-09-14 08:00] VITALS: PULSE 74; RESP 18; O2SAT 97
[2021-09-14] MEDS: FAMOTIDINE 20 MG/2 ML VIAL IV PUSH ×2 (08:18→20:12)
[2021-09-14] MEDS: ENOXAPARIN 40 MG/0.4 ML SYRINGE SUB-Q (08:18)
[2021-09-14] MEDS: FAT EMULSIONS IV 20% 250 ML 20.83 ML IVPB (09:09)
--- NOTE | 2021-09-14 09:46 | PCPTNOTE ---
attempted to see pt for PT eval ~ 945; was with [facility] for OT treatment; unable to complete eval at this time;
[2021-09-14] MEDS: AMINO ACIDS 5%/D15W/E-LYTES/CA 2,000 ML with MULTIVITAMINS-12 INJ VIAL 1 2.5 ML, MULTIV... 40 ML IV CONT (10:05)
[2021-09-14 11:48] LABS: Glucose Point of Care 128 mg/dl (65-105)
--- NOTE | 2021-09-14 12:45 | PM.IMPN ---
Progress Note: A&P Assessment and Plan (1) Small bowel obstruction: Code(s): K56.609 - Unspecified intestinal obstruction, unspecified as to partial versus complete obstruction Status: Deleted Assessment and Plan: Manage per surgery NG in place to low intermittent suction Bowel movement x3 this morning. (2) Acute UTI: Code(s): N39.0 - Urinary tract infection, site not specified Status: Deleted Assessment and Plan: Continue IV antibiotics, and no cultures. (3) Hypothyroidism: Code(s): E03.9 - Hypothyroidism, unspecified Status: Acute Assessment and Plan: Unchanged (4) Hypertension: Code(s): I10 - Essential (primary) hypertension Status: Acute Assessment and Plan: Continue to monitor (5) Hyperlipidemia: Code(s): E78.5 - Hyperlipidemia, unspecified Status: Acute Assessment and Plan: Monitored Subjective Date/time seen: 09/14/21 12:45 Feeling better today, bowel movement x3. Would like to drink coffee Exam Narrative: elderly frail Patient is comfortable, NAD HEENT: eyes are clear and none icteric, NG tube in place. LUNGS: normal respiratory effort ABD: not distant Lower extremities: no edema SKIN: nonjaundiced Neuro: grossly intact. Const: General: cooperative, comfortable, no acute distress, well developed, alert, awake and ill appearing Nutritional Appearance: average body habitus Orientation/consciousness: patient oriented x3 HENMT: Head: normal to inspection, normocephalic and atraumatic Ears: hearing grossly normal bilaterally General nose exam: Normal external nose present Face and sinus: normal facial exam Mouth: Yes Normal oral and palatal mucosa present Eyes: General: appearance normal, both eyes and all related structures Alignment and Position: alignment normal Sclera: sclerae normal Pupils: Equal, round and reactive pupils present EOM: EOMs intact bilaterally Neck: Neck: normal visual inspection, full ROM, no lymphadenopathy, supple and no JVD Thyroid: thyroid normal Lymphatic: no lymphadenopathy noted Resp: Effort & Inspection: normal respiratory effort and able to speak in complete sentences Auscultation: clear to auscultation bilaterally, no crackles, no rales, no rhonchi and no wheezes Cardio: Jugular venous distension: no JVD Rate: regular rate Rhythm: regular rhythm Heart sounds: S1 normal heart sound present and S2 normal heart sound present GI: Inspection: distended Auscultation: Hyperactive bowel sounds present : General: Yes deferred Skin: Rashes: no rashes Wounds: no wounds Neuro: General: patient oriented x3 and CN's II-XI intact bilaterally Cranial nerves: Yes CN's II-XII intact bilaterally and Yes Equal, round and reactive pupils present Cognition (Neuro): normal cognition Speech: normal speech Gait exam (Neuro): Normal gait present Motor exam (neuro): 5/5 motor strength present throughout Sensory Exam: No Sensory deficit (Neuro) Extrem: General: normal to inspection, full ROM, no joint enlargement and no pedal edema Objective Data Vital Signs Vital Signs: Vital Signs - 24 hr 09/13/21 14:00 09/13/21 21:42 09/14/21 05:28 Temperature 96.3 F L 98.1 F 98.0 F Pulse Rate 74 71 74 Respiratory Rate 17 18 18 Blood Pressure 150/76 H 156/70 H 141/61 H Pulse Oximetry 94 98 97 09/14/21 08:00 Temperature Pulse Rate 74 Respiratory Rate 18 Blood Pressure Pulse Oximetry 97 Intake/Output Intake/Output: Intake & Output 09/11/21 09/12/21 09/13/21 09/14/21 23:59 23:59 23:59 23:59 Intake Total 4425 4383 3475 3164 Output Total 1750 4025 1100 0 Balance 2675 358 1495 3164 Meds/Results Medications: Active Medications Generic Name Dose Route Start Last Admin Trade Name Freq PRN Reason Stop Dose Admin Enoxaparin Sodium 40 mg 09/08/21 09:00 09/14/21 08:18 Enoxaparin 40 Mg/0.4 Ml Syringe SUB-Q 40 mg DAILY EMMA Administration Famotidi
--- NOTE | 2021-09-14 12:51 | PM.PNGS ---
Progress Note: A&P Assessment and Plan (1) Small bowel obstruction with strangulation or infarction: Status: Acute Assessment and Plan: Slowly improving. Bowel function returning. Will remove NG tube and start clear liquids. Continue TPN again today until tolerating a more substantial diet. Continue daily dressing changes, incision is healing well. Will repeat labs tomorrow. (2) Protein-calorie malnutrition, moderate: Code(s): E44.0 - Moderate protein-calorie malnutrition Status: Acute Assessment and Plan: Continue TPN today. Additional Plan I have discussed the patient's case and plan of care with Dr. Reese. Subjective Subjective Date/Time Seen: 09/14/21 12:51 Post Op day: 5 (Small bowel resection) Patient reports: no new complaints, feels better, voiding w/o difficulty, flatus, bowel movement (x 3 this morning) and afebrile Interval history: Patient seen and examined. She reports feeling well today, even better than the last few days. She denies any abdominal pain. She is now passing gas and has had 3 bowel movements since 6:00 a.m. this morning. She is sitting up in the chair. Tolerating activity. No other complaints at this time. Review of Systems Review of Systems: All systems reviewed & are unremarkable except as noted in HPI and below Constitutional: Constitutional: Reports no additional constitutional complaints and Denies fever(s) Cardiovascular: Cardiovascular: Reports no additional cardiovascular complaints, Denies chest pain and Denies leg edema Respiratory: Respiratory: Reports no additional respiratory complaints, Denies cough and Denies dyspnea Gastrointestinal: Gastrointestinal: Reports as per HPI and Reports no additional gastrointestinal complaints Exam Const: General: comfortable and awake GI: Inspection: non-distended and incision (healing well, dry with minimal drainage.) GI Palp: Yes Soft to palpation, Yes Tenderness to palpation present (GI) (incisional) and No Guarding due to palpation present (GI) Percussion: Yes normal to percussion Auscultation: normal bowel sounds Neuro: General: moves all extremities and no focal motor deficits Extrem: General: no calf tenderness and no edema Psych: Insight: Good insight present (Psych) Judgement: Good judgement present (Psych) Objective Data Vital Signs Vital Signs: Vital Signs - 24 hr 09/13/21 14:00 09/13/21 21:42 09/14/21 05:28 Temperature 96.3 F L 98.1 F 98.0 F Pulse Rate 74 71 74 Respiratory Rate 17 18 18 Blood Pressure 150/76 H 156/70 H 141/61 H Pulse Oximetry 94 98 97 09/14/21 08:00 Temperature Pulse Rate 74 Respiratory Rate 18 Blood Pressure Pulse Oximetry 97 Intake/Output Intake/Output: Intake & Output 09/11/21 09/12/21 09/13/21 09/14/21 23:59 23:59 23:59 23:59 Intake Total 4425 4383 3475 3164 Output Total 1750 4025 1100 0 Balance 2675 358 8035 3164 Meds/Results Medications: Active Medications Generic Name Dose Route Start Last Admin Trade Name Freq PRN Reason Stop Dose Admin Enoxaparin Sodium 40 mg 09/08/21 09:00 09/14/21 08:18 Enoxaparin 40 Mg/0.4 Ml Syringe SUB-Q 40 mg DAILY EMMA Administration Famotidine 20 mg 09/09/21 21:00 09/14/21 08:18 Famotidine 20 Mg/2 Ml Vial IV PUSH 20 mg Q12HR EMMA Administration Hydralazine HCl 10 mg 09/12/21 13:54 09/13/21 21:44 Hydralazine Hcl 20 Mg/Ml Vial IV PUSH 10 mg Q8H PRN Administration Blood Pressure - High Potassium Chloride/Sodium Chloride 1,000 mls @ 60 mls/hr 09/10/21 09:05 09/14/21 09:10 Kcl 20 Meq/Ns IV CONT 100 mls/hr .[id number] EMMA Administration Dextrose 1,000 mls @ 50 mls/hr 09/10/21 10:52 Dextrose 10% IV CONT .Q20H PRN if PN is interrupted Multivitamins 2.5 ml/ 2,005 mls @ 40 mls/hr 09/10/21 10:55 09/14/21 10:05 Multivitamins 2.5 ml/ Amino IV CONT 40 mls/hr Acids/Electrolytes/Dextrose .Q24H EMMA Administration Protocol Fat Emulsion Intravenou
--- NOTE | 2021-09-14 13:22 | PC.NURSE ---
NG removed this shift, pt advanced to clear liquid diet via general surgery.
[2021-09-14 14:00] VITALS: BP 164/80; PULSE 66; RESP 18; TEMP 35.6; O2SAT 97
[2021-09-14 17:00] LABS: Glucose Point of Care 125 mg/dl (65-105)
--- NOTE | 2021-09-14 17:15 | PC.NURSE ---
reported red/orange loose stools to MD Hugh winn. Awaiting call back.
--- NOTE | 2021-09-14 17:25 | PC.NURSE ---
spoke with MD Reese red/orange stool normal finding, no need to test.
[2021-09-14 22:00] VITALS: BP 173/81; PULSE 65; RESP 16; TEMP 36.7; O2SAT 99
[2021-09-15] MEDS: KCL 20MEQ/0.9% SOD CHL 1,000 ML 60 ML IV CONT (01:43)
[2021-09-15 02:03] LABS: Glucose Point of Care 103 mg/dl (65-105)
[2021-09-15] MEDS: CENTRAL LINE FLUSH 10 ML IV PUSH ×3 (05:31→20:37)
[2021-09-15 05:35] LABS: Glucose Point of Care 90 mg/dl (65-105)
[2021-09-15 05:39] LABS: Basophils Absolute Auto 0.1 K/mm3 (0.0-0.1); Basophils Percent Auto 0.8 % (0.2-1.2); Eosinophils Absolute Auto 0.5 K/mm3 (0-0.3); Eosinophils Percent Auto 4.3 % (0-4.4); Hematocrit 35.4 % (37.0-47.0); Hemoglobin 11.7 g/dL (12.0-15.0); Immature Granulocyte Absolute 0.23 K/mm3 (0.00-0.031); Lymphocytes Absolute Auto 3.02 K/mm3 (0.9-3.2); Lymphocytes Percent Auto 26.8 % (18.3-44.2); Mean Corpuscular HGB Conc 33.1 g/dl (32-36); Mean Corpuscular Hemoglobin 29.3 pg (26-34); Mean Corpuscular Volume 88.7 fl (80-100); Mean Platelet Volume 9.7 fl (7.4-10.4); Monocytes Absolute Auto 1.2 K/mm3 (0.1-0.6); Monocytes Percent Auto 10.3 % (2.6-8.5); Neutrophils Absolute Auto 6.3 K/mm3 (1.3-6.7); Neutrophils Percent Auto 55.8 % (45.5-73.1); Platelet Count Result 200 k/mm3 (150-375); Red Blood Count 3.99 M/mm3 (4.2-5.4); Red Cell Distribution Width 12.9 % (11.5-14.5); White Blood Count 11.3 K/mm3 (4.5-10.0)
[2021-09-15 05:58] LABS: Alanine Aminotransferase 18 U/L (6-35); Albumin Level 3.5 g/dL (3.5-5.1); Alkaline Phosphatase 83 U/L (38-126); Anion Gap 7 mmol/L (8-16); Aspartate Amino Transferase 43 U/L (14-36); Bilirubin,Total 0.9 mg/dL (0.2-1.3); Blood Urea Nitrogen 19 mg/dL (7-17); Calcium 8.7 mg/dL (8.4-10.2); Carbon Dioxide 26 mmol/L (22-30); Chloride 103 mmol/L (98-107); Estimated CRCL calculation 39 ml/min; Estimated Glomerular Filt Rate 60; Glucose 92 mg/dL (65-110); Magnesium 1.8 mg/dL (1.6-2.3); Phosphorus 3.7 mg/dL (2.5-4.5); Potassium 5.5 mmol/L (3.4-5.0); Sodium 136 mmol/L (137-145)
[2021-09-15 06:00] VITALS: BP 164/96; PULSE 87; RESP 18; TEMP 36.6; O2SAT 97
[2021-09-15 08:02] LABS: Glucose Point of Care 121 mg/dl (65-105)
[2021-09-15] MEDS: FAMOTIDINE 20 MG/2 ML VIAL IV PUSH (08:19)
[2021-09-15] MEDS: ENOXAPARIN 40 MG/0.4 ML SYRINGE SUB-Q (08:19)
[2021-09-15] MEDS: FAMOTIDINE 20 MG TABLET PO ×2 (09:43→20:36)
--- NOTE | 2021-09-15 10:33 | PM.IMPN ---
Progress Note: A&P Assessment and Plan (1) Small bowel obstruction: Code(s): K56.609 - Unspecified intestinal obstruction, unspecified as to partial versus complete obstruction Status: Deleted Assessment and Plan: Manage per surgery ng out tolerating liquids wants to eat ok w stopping abx if ok w surgery (2) Acute UTI: Code(s): N39.0 - Urinary tract infection, site not specified Status: Deleted Assessment and Plan: Continue IV antibiotics she has received 3 days for uncomplicated uti ? significant uti without prior symptoms ok w dc abx if not needed from surgical standpoint (3) Hypothyroidism: Code(s): E03.9 - Hypothyroidism, unspecified Status: Acute Assessment and Plan: Unchanged (4) Hypertension: Code(s): I10 - Essential (primary) hypertension Status: Acute Assessment and Plan: Continue to monitor (5) Hyperlipidemia: Code(s): E78.5 - Hyperlipidemia, unspecified Status: Acute Assessment and Plan: Monitored Subjective Date/time seen: 09/15/21 10:33 feeling better Review of Systems Review of Systems: All systems reviewed & are unremarkable except as noted in HPI and below Constitutional: Constitutional: Denies chills, Denies fatigue, Denies fever(s), Denies malaise and Denies night sweats Eyes: Eyes: Denies change in vision ENT: Denies dysphagia, Denies vertigo, Denies nasal congestion, Denies nasal discharge, Denies nasal obstruction and Denies odynophagia Cardiovascular: Cardiovascular: Denies claudication, Denies leg edema, Denies lightheadedness, Denies radiating jaw, neck or arm pain, Denies palpitations and Denies dyspnea on exertion Respiratory: Respiratory: Denies cough and Denies dyspnea on exertion Gastrointestinal: Gastrointestinal: Reports abdominal pain, Denies dysphagia, Denies dyspepsia, Denies heartburn, Denies diarrhea, Reports nausea, Denies odynophagia and Reports vomiting Genitourinary: Genitourinary: Denies dysuria Musculoskeletal: Musculoskeletal: Denies back pain, Denies arthralgias and Denies joint swelling Integumentary/Breasts: Skin/Breast: Denies rash Neurologic: Denies vertigo, Denies focal weakness and Denies Sensory deficit (Neuro) Psychiatric: Psychiatric: Reports no additional psychiatric complaints and Reports as per HPI Endocrine: Endocrine: Denies cold intolerance, Denies fatigue, Denies heat intolerance, Denies polyphagia, Denies polydipsia, Denies polyuria and Denies palpitations Hematologic/Lymphatic: Hematologic/Lymphatic: Reports no additional hematologic/lymphatic complaints and Reports as per HPI Allergic/Immunologic: Allergic/Immunologic: Reports no additional allergic/immunologic complaints and Reports as per HPI Exam Narrative: elderly frail Patient is comfortable, NAD HEENT: eyes are clear and none icteric, NG tube in place. LUNGS: normal respiratory effort ABD: not distant Lower extremities: no edema SKIN: nonjaundiced Neuro: grossly intact. Const: General: cooperative, comfortable, no acute distress, well developed, alert, awake and ill appearing Nutritional Appearance: average body habitus Orientation/consciousness: patient oriented x3 HENMT: Head: normal to inspection, normocephalic and atraumatic Ears: hearing grossly normal bilaterally General nose exam: Normal external nose present Face and sinus: normal facial exam Mouth: Yes Normal oral and palatal mucosa present Eyes: General: appearance normal, both eyes and all related structures Alignment and Position: alignment normal Sclera: sclerae normal Pupils: Equal, round and reactive pupils present EOM: EOMs intact bilaterally Neck: Neck: normal visual inspection, full ROM, no lymphadenopathy, supple and no JVD Thyroid: thyroid normal Lymphatic: no lymphadenopathy noted Resp: Effort & Inspection: normal respiratory effort and able to speak in complete sentences Auscultation: clear to a
[2021-09-15] MEDS: guaiFENesin/DEXTROMETHORPHAN 10 ML UDC 5 ML PO (10:42)
[2021-09-15] MEDS: HYDROcodone/acetaminophen (*CRX) 5-325 MG TABLET 1 TAB PO (10:42)
[2021-09-15 11:49] LABS: Glucose Point of Care 115 mg/dl (65-105)
--- NOTE | 2021-09-15 12:24 | PM.PNGS ---
Progress Note: A&P Assessment and Plan (1) Small bowel obstruction with strangulation or infarction: Status: Acute Assessment and Plan: Continues to improve. Advanced to full liquids. Will advance as tolerated to low fiber. Stop TPN and IV fluids. Continue antibiotics. Encouraged increasing activity as tolerated and walking the halls. May be able to discharge the patient tomorrow if she continues to do well. (2) Protein-calorie malnutrition, moderate: Code(s): E44.0 - Moderate protein-calorie malnutrition Status: Acute Assessment and Plan: Tolerating her diet. Stop TPN. Additional Plan I have discussed the patient's case and plan of care with Dr. Reese. Subjective Subjective Date/Time Seen: 09/15/21 12:24 Post Op day: 6 Patient reports: no new complaints, feels better, tolerating liquids well, voiding w/o difficulty, flatus, bowel movement and afebrile Interval history: Patient seen and examined. She is complaining of some sinus drainage that she feels is making her cough that aggravates her incisional pain. No shortness of breath or chest pain, no sputum. She otherwise continues to feel better. She is tolerating full liquids without nausea or bloating. Continues to move her bowels. Review of Systems Review of Systems: All systems reviewed & are unremarkable except as noted in HPI and below Exam Const: General: no acute distress and awake Orientation/consciousness: patient oriented x3 GI: Inspection: non-distended and incision (healing well, dry with minimal drainage.) GI Palp: Yes Soft to palpation, Yes Tenderness to palpation present (GI) (incisional) and No Guarding due to palpation present (GI) Auscultation: normal bowel sounds Extrem: General: no calf tenderness and no edema Psych: Insight: Good insight present (Psych) Judgement: Good judgement present (Psych) Objective Data Vital Signs Vital Signs: Vital Signs - 24 hr 09/14/21 14:00 09/14/21 22:00 09/15/21 06:00 Temperature 96.0 F L 98.1 F 97.8 F Pulse Rate 66 65 87 Respiratory Rate 18 16 18 Blood Pressure 164/80 H 173/81 H 164/96 H Pulse Oximetry 97 99 97 Intake/Output Intake/Output: Intake & Output 09/12/21 09/13/21 09/14/21 09/15/21 23:59 23:59 23:59 23:59 Intake Total 4383 3475 4744 290 Output Total 4025 1100 0 0 Balance 358 6533 4744 290 Meds/Results Medications: Active Medications Generic Name Dose Route Start Last Admin Trade Name Freq PRN Reason Stop Dose Admin Acetaminophen 500 mg 09/15/21 08:29 Acetaminophen 500 Mg Tablet PO Q6H PRN Mild Pain (1-3) or Fever Hydrocodone Bitart/Acetaminophen 1 tab 09/15/21 08:29 09/15/21 10:42 Hydrocodone/Acetaminophen (*Crx) 5-325 Mg Tablet PO 1 tab Q4H PRN Administration Pain Rated 4-6 Hydrocodone Bitart/Acetaminophen 1 tab 09/15/21 08:29 Hydrocodone/Acetaminophen (*Crx) 10-325 Mg Tablet PO Q6H PRN Pain Rated 7-10 Enoxaparin Sodium 40 mg 09/08/21 09:00 09/15/21 08:19 Enoxaparin 40 Mg/0.4 Ml Syringe SUB-Q 40 mg DAILY EMMA Administration Famotidine 20 mg 09/15/21 09:00 09/15/21 09:43 Famotidine 20 Mg Tablet PO 20 mg Q12HR EMMA Administration Guaifenesin/Dextromethorphan 5 ml 09/15/21 10:18 09/15/21 10:42 Guaifenesin/Dextromethorphan 10 Ml Udc PO 5 ml Q4H PRN Administration Cough Hydralazine HCl 10 mg 09/12/21 13:54 09/13/21 21:44 Hydralazine Hcl 20 Mg/Ml Vial IV PUSH 10 mg Q8H PRN Administration Blood Pressure - High Dextrose 1,000 mls @ 50 mls/hr 09/10/21 10:52 Dextrose 10% IV CONT .Q20H PRN if PN is interrupted Piperacillin/Tazobactam/Dextrose 3.375 gm in 50 mls @ 100 mls/hr 09/13/21 06:00 09/15/21 05:30 Zosyn 3.375 Gm/D5w 50ml Pm IVPB 100 mls/hr Q6HR EMMA Administration Insulin Human Regular 0 units 09/10/21 12:00 09/15/21 12:21 Insulin Human Regular (*Bkc) 100 Units/Ml SUB-Q Not Given Q6HR [facility] Protocol Metopr
[2021-09-15 14:00] VITALS: BP 137/61; PULSE 75; RESP 20; TEMP 36.1
[2021-09-15] MEDS: LORATADINE 10 MG TABLET PO (14:32)
[2021-09-15 16:57] LABS: Glucose Point of Care 106 mg/dl (65-105)
[2021-09-15 21:55] VITALS: BP 154/78; PULSE 73; RESP 18; TEMP 36.1; O2SAT 98
[2021-09-16 06:00] VITALS: BP 150/75; PULSE 64; RESP 18; TEMP 35.7; O2SAT 100
[2021-09-16] MEDS: CENTRAL LINE FLUSH 10 ML IV PUSH (06:09)
[2021-09-16 06:28] LABS: Hematocrit 34.7 % (37.0-47.0); Hemoglobin 11.2 g/dL (12.0-15.0); Mean Corpuscular HGB Conc 32.3 g/dl (32-36); Mean Corpuscular Hemoglobin 29.3 pg (26-34); Mean Corpuscular Volume 90.8 fl (80-100); Mean Platelet Volume 9.5 fl (7.4-10.4); Platelet Count Result 207 k/mm3 (150-375); Red Blood Count 3.82 M/mm3 (4.2-5.4); Red Cell Distribution Width 13.4 % (11.5-14.5); White Blood Count 13.5 K/mm3 (4.5-10.0)
[2021-09-16 06:50] LABS: Anion Gap 6 mmol/L (8-16); Blood Urea Nitrogen 17 mg/dL (7-17); Calcium 8.4 mg/dL (8.4-10.2); Carbon Dioxide 24 mmol/L (22-30); Chloride 101 mmol/L (98-107); Estimated CRCL calculation 30 ml/min; Estimated Glomerular Filt Rate 53; Glucose 94 mg/dL (65-110); Potassium 5.8 mmol/L (3.4-5.0); Sodium 131 mmol/L (137-145)
[2021-09-16 07:35] LABS: Glucose Point of Care 96 mg/dl (65-105)
[2021-09-16] MEDS: LORATADINE 10 MG TABLET PO (08:55)
[2021-09-16] MEDS: FAMOTIDINE 20 MG TABLET PO (08:55)
[2021-09-16] MEDS: ENOXAPARIN 40 MG/0.4 ML SYRINGE SUB-Q (08:55)
--- NOTE | 2021-09-16 11:39 | PM.DS ---
DS: Admitting Diagnosis Discharge Date 08/2021 Admitting Diagnosis Bowel obstruction DS: Discharge Diagnosis Discharge Diagnosis (1) Small bowel obstruction: Code(s): K56.609 - Unspecified intestinal obstruction, unspecified as to partial versus complete obstruction Status: Deleted Assessment and Plan: Manage per surgery ng out Tolerating normal diet follow up with surgery as an outpatient (2) Acute UTI: Code(s): N39.0 - Urinary tract infection, site not specified Status: Deleted Assessment and Plan: The patient completed the course of antibiotics for questionable UTI. No symptoms. Antibiotics can be stopped. (3) Hypothyroidism: Code(s): E03.9 - Hypothyroidism, unspecified Status: Acute Assessment and Plan: Unchanged (4) Hypertension: Code(s): I10 - Essential (primary) hypertension Status: Acute Assessment and Plan: Continue to monitor (5) Hyperlipidemia: Code(s): E78.5 - Hyperlipidemia, unspecified Status: Acute Assessment and Plan: Monitored DS: Summary Hospital Course Hospital Course: See discharge planning and diagnoses Time Spent with Patient Time attestation: Total time spent providing and/or coordinating discharge services: Greater than 30 min Exam Narrative: elderly frail Patient is comfortable, NAD HEENT: eyes are clear and none icteric, NG tube in place. LUNGS: normal respiratory effort ABD: not distant Lower extremities: no edema SKIN: nonjaundiced Neuro: grossly intact. Const: General: cooperative, comfortable, no acute distress, well developed, alert, awake and ill appearing Nutritional Appearance: average body habitus Orientation/consciousness: patient oriented x3 HENMT: Head: normal to inspection, normocephalic and atraumatic Ears: hearing grossly normal bilaterally General nose exam: Normal external nose present Face and sinus: normal facial exam Mouth: Yes Normal oral and palatal mucosa present Eyes: General: appearance normal, both eyes and all related structures Alignment and Position: alignment normal Sclera: sclerae normal Pupils: Equal, round and reactive pupils present EOM: EOMs intact bilaterally Neck: Neck: normal visual inspection, full ROM, no lymphadenopathy, supple and no JVD Thyroid: thyroid normal Lymphatic: no lymphadenopathy noted Resp: Effort & Inspection: normal respiratory effort and able to speak in complete sentences Auscultation: clear to auscultation bilaterally, no crackles, no rales, no rhonchi and no wheezes Cardio: Jugular venous distension: no JVD Rate: regular rate Rhythm: regular rhythm Heart sounds: S1 normal heart sound present and S2 normal heart sound present GI: Inspection: distended Auscultation: Hyperactive bowel sounds present : General: Yes deferred Skin: Rashes: no rashes Wounds: no wounds Neuro: General: patient oriented x3 and CN's II-XI intact bilaterally Cranial nerves: Yes CN's II-XII intact bilaterally and Yes Equal, round and reactive pupils present Cognition (Neuro): normal cognition Speech: normal speech Gait exam (Neuro): Normal gait present Motor exam (neuro): 5/5 motor strength present throughout Sensory Exam: No Sensory deficit (Neuro) Extrem: General: normal to inspection, full ROM, no joint enlargement and no pedal edema DS: Data Data Completed and Pending Completed studies during hospitalization: Pending at discharge 09/09/21 18:45 Surgical [PTH] Routine Labs on day of discharge: Labs from last 24 hours 09/16/21 09/16/21 09/16/21 07:32 06:11 06:11 WBC 13.5 H RBC 3.82 L Hgb 11.2 L Hct 34.7 L MCV 90.8 MCH 29.3 MCHC 32.3 RDW 13.4 Plt Count 207 MPV 9.5 Sodium 131 L Potassium 5.8 H Chloride 101 Carbon Dioxide 24 Anion Gap 6 L BUN 17 Creatinine 1.00 Estim Creat Clear Calc 30 Estimated GFR 53 L Glucose 94 POC Capillary
--- NOTE | 2021-09-16 12:46 | PCOTNOTE ---
Attempted to see pt for treatment this afternoon, however pt. is preparing for d/c with all personal items prepared. MEANS reviewed d/c plans regarding environmental modifications/adaptations to utilize upon d/c to assist in recovery with good understanding from pt and spouse. Pt. verbalized no additional concerns on this date.
[2021-09-16 13:50] VITALS: BP 136/61; PULSE 83; RESP 18; TEMP 36.3; O2SAT 100
--- NOTE | 2021-09-16 15:26 | PCNFU ---
Nutrition Follow-Up Complete: Altered GI function related to small bowel obstruction as evidenced by current diagnosis, hypoactive bowel sounds and need for TPN for nutrition. Goal: Advance to PO diet when appropriate Pt is meeting goal Pt current nutrition is Low Fiber (Low Residue) diet Last recorded weight is 61.5 kg, down 8.5kg since last reported wt on 09/15/21 - unsure if this is accurate. Bowel Motility: +BM reported 09/14/21 Labs Reviewed: Hgb 11.2, Hct 34.7, Na 131, K 5.8, GFR 53 Meds Noted: Lovenox, Pepcid, Claritin Skin: Abdomen wound Additional Notes: Current nutrition is a Low Fiber diet with reported intake of 100% x2, 50%, 30%, and 5%. TPN has been d/c. Pt to d/c today (09/16/21). If pt is not d/c, recommend adding dietary supplement of Ensure Compact BID. Agree with diet orders at this time. Will continue to follow if pt not d/c. Monitor TPN, wt, labs. Follow up every 5 days
--- NOTE | 2021-09-16 17:06 | PM.PNGS ---
Progress Note: A&P Assessment and Plan (1) Small bowel obstruction with strangulation or infarction: Status: Acute Assessment and Plan: Doing very well. Tolerating solid food and ambulating much better. Requiring minimal analgesics. Wound is healing well. Steri-Strips were placed after the wound juan were removed. She does have an elevated white blood cell count but I do not see any signs of infection. It could be related to her antibiotic treatment which was discontinued earlier today. We will go ahead and discharge the patient today if okay with hospitalist. I will recheck a CBC and BMP on her again on Sunday09/19/2021. She was instructed to call me if any fever wound problems or other significant change in condition. Otherwise I will see her again in 2 weeks. (2) Protein-calorie malnutrition, moderate: Code(s): E44.0 - Moderate protein-calorie malnutrition Status: Acute Assessment and Plan: Was on TPN but now tolerating solid food well. DC PICC line for discharge. Subjective Subjective Date/Time Seen: 09/16/21 17:06 Post Op day: #7 Patient reports: no new complaints, feels better, pain is less, bowel movement and afebrile Interval history: No complaints of pain. Walking better. No wound pain or drainage. No dysuria or coughing. Feels very good and would like to go home. Stools are no longer loose but more formed. Review of Systems Review of Systems: All systems reviewed & are unremarkable except as noted in HPI and below Constitutional: Constitutional: Denies body ache(s), Denies chills, Denies fever(s), Denies headache(s) and Reports increased appetite Cardiovascular: Cardiovascular: Denies chest pain and Denies dyspnea Respiratory: Respiratory: Denies cough and Denies dyspnea Gastrointestinal: Gastrointestinal: Reports as per HPI, Denies abdominal pain, Denies dyspepsia, Denies loose stools, Denies nausea and Denies vomiting Genitourinary: Genitourinary: Denies hematuria and Denies dysuria Exam Const: General: cooperative, comfortable, no acute distress, awake and Physically active; No confusion Nutritional Appearance: average body habitus Orientation/consciousness: patient oriented x3 and No confusion GI: Inspection: non-distended and incision (Healing well, juan removed Steri-Strips placed) GI Palp: Yes Soft to palpation, No Tenderness to palpation present (GI), No Guarding due to palpation present (GI) and No Rebound tenderness present Auscultation: normal bowel sounds Neuro: General: patient oriented x3, no focal motor deficits and No confusion Extrem: General: no calf tenderness and no edema Psych: Affect: normal affect Insight: Good insight present (Psych) Judgement: Good judgement present (Psych) Objective Data Vital Signs Vital Signs: Vital Signs - 24 hr 09/15/21 21:55 09/16/21 06:00 09/16/21 13:50 Temperature 36.1 C L 35.7 C L 36.3 C L Pulse Rate 73 64 83 Respiratory Rate 18 18 18 Blood Pressure 154/78 H 150/75 H 136/61 Pulse Oximetry 98 100 100 Intake/Output Intake/Output: Intake & Output 09/13/21 09/14/21 09/15/21 09/16/21 23:59 23:59 23:59 23:59 Intake Total 3475 4744 1240 930 Output Total 1100 0 0 400 Balance 2375 4744 1240 530 Meds/Results Medications: Active Medications Generic Name Dose Route Start Last Admin Trade Name Freq PRN Reason Stop Dose Admin Acetaminophen 500 mg 09/15/21 08:29 Acetaminophen 500 Mg Tablet PO Q6H PRN Mild Pain (1-3) or Fever Hydrocodone Bitart/Acetaminophen 1 tab 09/15/21 08:29 09/15/21 10:42 Hydrocodone/Acetaminophen (*Crx) 5-325 Mg Tablet PO 1 tab Q4H PRN Administration Pain Rated 4-6 Hydrocodone Bitart/Acetaminophen 1 tab 09/15/21 08:29 Hydrocodone/Acetaminophen (*Crx) 10-325 Mg Tablet PO Q6H PRN Pain Rated 7-10 Enoxaparin Sodium 40 mg 09/08/21 09:00 09/16/21 08:55 Enoxaparin 40 Mg/0.4 Ml Syringe SUB-Q 40 mg DAILY EMMA Administra
== END 2021-09-16 18:06 | disposition home or self-care (01) | DRG 330 ==
LOC: ANHED 23:47 → ANH3MEDSUR 09-08 03:22
PROVIDERS: Internal Medicine; Nurse Practitioner Adult Health; Surgery; Admitting Provider Family Medicine; Emergency Provider Emergency Medicine; PCP Emergency Medicine; Visit Provider Chiropractor
PROC: 0DBB0ZZ Excision of Ileum, Open Approach (ICD-10-PCS; CPT 49000; principal; 2021-09-09 17:30)
DX: K55.029 Acute infarction of small intestine, extent unspecified (principal); K56.52 Intestinal adhesions [bands] with complete obstruction; N39.0 Urinary tract infection, site not specified; E44.0 Moderate protein-calorie malnutrition; K56.7 Ileus, unspecified; Z20.822 Contact with and (suspected) exposure to COVID-19; K80.20 Calculus of gallbladder without cholecystitis without obstruction; E03.9 Hypothyroidism, unspecified; I10 Essential (primary) hypertension; E78.5 Hyperlipidemia, unspecified; Z79.899 Other long term (current) drug therapy; Z87.42 Personal history of other diseases of the female genital tract; Z90.710 Acquired absence of both cervix and uterus
CPT/HCPCS: 36415; 36569; 74018; 74176; 74240; 74248; 80048; 80053; 81001; 82948; 83605; 83690; 83735; 84100; 84466; 84478; 85025; 85027; 85055; 85610; 85730; 86850; 86900; 86901; 88307; 96361; 96365; 96367; 96372; 96375; 96376; 97161; 97165; 97530; 97535; 99285; A9270; C1751; C9113; C9803; G0378; J0131; J0330; J0360; J0690; J0696; J1650; J1741; J2270; J2405; J2543; J3010; J3480; J7030; J7042; J7120; U0003; U0005

== ENCOUNTER 2021-09-19 10:33 | Outpatient (CLI) | payer MEDICARE, SELFPAY ==
[2021-09-19 11:34] LABS: Hematocrit 32.7 % (37.0-47.0); Hemoglobin 10.6 g/dL (12.0-15.0); Mean Corpuscular HGB Conc 32.4 g/dl (32-36); Mean Corpuscular Hemoglobin 29.4 pg (26-34); Mean Corpuscular Volume 90.6 fl (80-100); Mean Platelet Volume 9.8 fl (7.4-10.4); Platelet Count Result 286 k/mm3 (150-375); Red Blood Count 3.61 M/mm3 (4.2-5.4); Red Cell Distribution Width 13.1 % (11.5-14.5); White Blood Count 13.7 K/mm3 (4.5-10.0)
[2021-09-19 11:42] LABS: Anion Gap 7 mmol/L (8-16); Blood Urea Nitrogen 20 mg/dL (7-17); Calcium 8.7 mg/dL (8.4-10.2); Carbon Dioxide 27 mmol/L (22-30); Chloride 97 mmol/L (98-107); Estimated Glomerular Filt Rate 53; Glucose 107 mg/dL (65-110); Potassium 4.6 mmol/L (3.4-5.0); Sodium 131 mmol/L (137-145)
== END 2021-09-19 10:34 | disposition home or self-care (01) ==
LOC: ANHLAB 10:37
PROVIDERS: PCP Emergency Medicine; Visit Provider Surgery
DX: K56.609 Unspecified intestinal obstruction, unspecified as to partial versus complete obstruction (principal)
CPT/HCPCS: 36415; 80048; 85027

== ENCOUNTER 2021-09-22 09:05 | Outpatient (CLI) | payer MEDICARE, SELFPAY ==
[2021-09-22 11:01] LABS: Basophils Absolute Auto 0.1 K/mm3 (0.0-0.1); Basophils Percent Auto 0.6 % (0.2-1.2); Eosinophils Absolute Auto 0.3 K/mm3 (0-0.3); Eosinophils Percent Auto 2.3 % (0-4.4); Hematocrit 31.6 % (37.0-47.0); Immature Granulocyte Absolute 0.31 K/mm3 (0.00-0.031); Immature Granulocyte Percent A 2.2 % (0-0.5); Lymphocytes Absolute Auto 4.07 K/mm3 (0.9-3.2); Lymphocytes Percent Auto 28.5 % (18.3-44.2); Mean Corpuscular HGB Conc 31.6 g/dl (32-36); Mean Corpuscular Hemoglobin 29.5 pg (26-34); Mean Corpuscular Volume 93.2 fl (80-100); Mean Platelet Volume 9.4 fl (7.4-10.4); Monocytes Absolute Auto 0.9 K/mm3 (0.1-0.6); Monocytes Percent Auto 6.2 % (2.6-8.5); Neutrophils Absolute Auto 8.6 K/mm3 (1.3-6.7); Neutrophils Percent Auto 60.2 % (45.5-73.1); Platelet Count Result 310 k/mm3 (150-375); Red Blood Count 3.39 M/mm3 (4.2-5.4); Red Cell Distribution Width 13.8 % (11.5-14.5); White Blood Count 14.3 K/mm3 (4.5-10.0)
== END 2021-09-22 09:06 | disposition home or self-care (01) ==
PROVIDERS: PCP Emergency Medicine; Visit Provider Surgery
DX: K56.609 Unspecified intestinal obstruction, unspecified as to partial versus complete obstruction (principal)
CPT/HCPCS: 36415; 85025

== ENCOUNTER 2021-09-27 09:09 | Outpatient (CLI) | payer MEDICARE, SELFPAY ==
[2021-09-27 09:50] LABS: Basophils Percent Auto 0.4 % (0.2-1.2); Eosinophils Absolute Auto 0.3 K/mm3 (0-0.3); Eosinophils Percent Auto 3.3 % (0-4.4); Hematocrit 31.1 % (37.0-47.0); Hemoglobin 9.8 g/dL (12.0-15.0); Immature Granulocyte Absolute 0.05 K/mm3 (0.00-0.031); Immature Granulocyte Percent A 0.5 % (0-0.5); Lymphocytes Absolute Auto 2.65 K/mm3 (0.9-3.2); Lymphocytes Percent Auto 28.3 % (18.3-44.2); Mean Corpuscular HGB Conc 31.5 g/dl (32-36); Mean Corpuscular Hemoglobin 29.4 pg (26-34); Mean Corpuscular Volume 93.4 fl (80-100); Monocytes Absolute Auto 0.6 K/mm3 (0.1-0.6); Neutrophils Absolute Auto 5.8 K/mm3 (1.3-6.7); Neutrophils Percent Auto 61.5 % (45.5-73.1); Platelet Count Result 239 k/mm3 (150-375); Red Blood Count 3.33 M/mm3 (4.2-5.4); Red Cell Distribution Width 13.9 % (11.5-14.5); White Blood Count 9.4 K/mm3 (4.5-10.0)
== END 2021-09-27 09:10 | disposition home or self-care (01) ==
PROVIDERS: PCP Emergency Medicine; Visit Provider Surgery
DX: K56.609 Unspecified intestinal obstruction, unspecified as to partial versus complete obstruction (principal)
CPT/HCPCS: 36415; 85025

== ENCOUNTER 2022-11-17 23:04 | Emergency (ER) | payer MEDICARE, SELFPAY ==
--- NOTE | ~2022-11-17 | XR_ITS ---
XR chest 1V portable 11/17/2022 23:33 Indication: Weakness and dyspnea Procedure: AP portable chest Comparison: 09/10/2021 Findings: Cardiomegaly. No focal air space disease, pulmonary edema, pleural effusion or suspected pn eumothorax. No acute osseous abnormality. Impression: 1: No acute cardiopulmonary disease. Reviewed, dictated and finalized at location A. Impression: 1: No acute cardiopulmonary disease.
--- NOTE | ~2022-11-17 | CT_ITS ---
EXAMINATION: CT BRAIN W/O DATE: 11/17/2022 23:28 INDICATION: Left-sided weakness TECHNIQUE: Computed tomography (CT) of the head was performed without intravenous contrast. The dose- length product was 605.33 mGy-cm. COMPARISON: No prior studies for comparison. FINDINGS: Normal brain parenchymal volume for age. Normal pisano-white differentiation. No acute intrac ranial hemorrhage, infarction, mass or mass effect. There are scattered mild periventricular and subc ortical white matter changes, most likely related to small vessel ischemic disease (microangiopathy). No ventriculomegaly or midline shift. Midline sagittal images demonstrate a normal corpus callosum, c raniovertebral junction and sella turcica. Basilar cisterns are patent. Paranasal sinuses and mastoids are pneumatized. No depressed skull fractures. IMPRESSION: 1. No acute intracranial abnormality. Reviewed, dictated and finalized at location A.
--- NOTE | ~2022-11-17 | CT_ITS ---
EXAMINATION: CTA brain carotid DATE: 11/18/2022 09:33 CDT INDICATION: Left-sided weakness. TECHNIQUE: Computed tomographic angiography (CTA) of the head was performed with 100 mL Omnipaque-350 intravenous contrast. CTA of the neck was performed with intravenous contrast. The dose-length produ ct was 1155.76 mGy-cm. Maximum intensity projection and volume rendered 3D-reconstructions were creat ed by the technologist on a separate workstation. COMPARISON: CT dated 11/17/2022. FINDINGS: HEAD CTA: There is mild atherosclerosis of the cavernous internal carotid arteries without significan t stenosis. 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 No th rombosed segment is seen. Left middle cerebral artery is normal. Remainder of the anterior and microwave remote sensing scientist ior circulation is unremarkable. NECK CTA: There is mild atherosclerosis of the carotid bulbs without significant stenosis. There are degenerative changes of the cervical spine. There is 46% stenosis of the proximal right internal carotid artery relative to normal distal artery lumen diameter (NASCET criteria). There is 0% stenosis of the proximal left internal carotid artery r elative to normal distal artery lumen diameter. IMPRESSION: 1: No significant intracranial vascular abnormality. 2: Mild atherosclerosis of the right internal carotid artery with 46% stenosis Reviewed, dictated and finalized at location A.
[2022-11-17 23:05] VITALS: BP 167/82; PULSE 84; RESP 17; TEMP 36.5; O2SAT 93
--- NOTE | 2022-11-17 23:05 | ECG_ITS ---
Measurements Intervals [place] Rate: 84 P: 57 PA: 160 QRS: -13 QRSD: 150 T: 101 QT: 395 QTc: 467 Interpretive Statements SINUS RHYTHM LEFT BUNDLE BRANCH BLOCK BASELINE ARTIFACT- I, II, III, AVR, AVL, AVF, V1-V6 ABNORMAL ECG COMPARED TO ECG 10/23/2019 07:24:24 SINUS RHYTHM NOW PRESENT Electronically Signed On 11-18-2022 7:19:02 CDT by Nate Diaz D.O.
[2022-11-17 23:18] LABS: Estimated Glomerular Filt Rate 39
[2022-11-17 23:21] LABS: Basophils Absolute Auto 0.1 K/mm3 (0.0-0.1); Basophils Percent Auto 0.6 % (0.2-1.2); Eosinophils Absolute Auto 0.2 K/mm3 (0-0.3); Eosinophils Percent Auto 2.6 % (0-4.4); Hematocrit 40.7 % (37.0-47.0); Hemoglobin 13.5 g/dL (12.0-15.0); Immature Granulocyte Absolute 0.04 K/mm3 (0.00-0.031); Immature Granulocyte Percent A 0.5 % (0-0.5); Immature Platelet Fraction Pct 3.3 % (0.9-11.2); Lymphocytes Absolute Auto 2.54 K/mm3 (0.9-3.2); Lymphocytes Percent Auto 32.5 % (18.3-44.2); Mean Corpuscular HGB Conc 33.2 g/dl (32-36); Mean Corpuscular Hemoglobin 29.7 pg (26-34); Mean Corpuscular Volume 89.5 fl (80-100); Mean Platelet Volume 9.5 fl (7.4-10.4); Monocytes Absolute Auto 0.5 K/mm3 (0.1-0.6); Monocytes Percent Auto 6.3 % (2.6-8.5); Neutrophils Absolute Auto 4.5 K/mm3 (1.3-6.7); Neutrophils Percent Auto 57.5 % (45.5-73.1); Platelet Count Result 147 k/mm3 (150-375); Red Blood Count 4.55 M/mm3 (4.2-5.4); Red Cell Distribution Width 12.9 % (11.5-14.5); White Blood Count 7.8 K/mm3 (4.5-10.0)
[2022-11-17 23:29] LABS: Alanine Aminotransferase 18 U/L (6-35); Albumin Level 4.5 g/dL (3.5-5.1); Alkaline Phosphatase 56 U/L (38-126); Anion Gap 16 mmol/L (8-16); Aspartate Amino Transferase 30 U/L (14-36); Bilirubin,Total 0.3 mg/dL (0.2-1.3); Blood Urea Nitrogen 28 mg/dL (7-17); Calcium 9.3 mg/dL (8.4-10.2); Carbon Dioxide 21 mmol/L (22-30); Chloride 99 mmol/L (98-107); Estimated Glomerular Filt Rate 43; Glucose 122 mg/dL (65-110); Magnesium 2.1 mg/dL (1.6-2.3); Potassium 4.3 mmol/L (3.4-5.0); Sodium 136 mmol/L (137-145)
[2022-11-17 23:31] LABS: Prothrombin Time 13.4 Seconds (11.1-14.7)
[2022-11-17 23:32] LABS: Partial Thromboplastin Time 28.9 SECONDS (22.3-36.8)
[2022-11-17 23:40] LABS: Troponin I 0.013 ng/mL (0.000-0.034)
[2022-11-17 23:50] VITALS: BP 167/82; PULSE 84; RESP 18; O2SAT 94
[2022-11-18] VITALS (26 sets, daily range): BP systolic 127–177; BP diastolic 57–97; PULSE 59–110; RESP 12–21; O2SAT 60–100
[2022-11-18 00:18] LABS: Lactic Acid Reflex 4.8 mmol/L (0.7-2.0)
[2022-11-18] MEDS: SODIUM CHLORIDE 0.9% IV 1,000 ML 999 ML IV CONT ×2 (00:18→01:59)
--- NOTE | 2022-11-18 01:01 | ED.GENADULT ---
HPI - General Adult General Chief complaint: Neuro Symptoms/Deficit Stated complaint: CVA? Time Seen by Provider: 11/17/22 23:04 History of Present Illness HPI narrative: Patient 82-year-old female presents emergency department with chief complaint of strokelike symptoms. Per the patient's family and per EMS the patient apparently started making snoring like respirations and then was found to be unresponsive. They attempted sternal rub without response and felt for pulses and did not feel a pulse family lowered to the ground and initially started doing compressions on her the patient when EMS arrived started to become responsive and was combative the patient initially had a left-sided facial droop and left-sided weakness by the time they arrived to the emergency department the patient was alert and able to answer questions appropriately and was back to her baseline Related Data Home Medications Medication Instructions Recorded Confirmed carvedilol 6.25 mg tablet 6.25 mg PO BID 10/22/19 10/06/21 hydrochlorothiazide 12.5 mg tablet 12.5 mg PO DAILY 10/22/19 10/06/21 pravastatin 20 mg tablet 20 mg PO DAILY 10/22/19 10/06/21 quinapril 40 mg tablet 40 mg PO DAILY 10/22/19 10/06/21 levothyroxine 75 mcg tablet 75 mcg PO QAM 09/08/21 10/06/21 Allergies Allergy/AdvReac Type Severity Reaction Status Date / Time clonidine Allergy Severe UNKNOWN Verified 10/06/21 09:21 REACTION SEAFOOD Allergy Severe LIP/THROAT Uncoded 10/06/21 09:21 SWELLING Review of Systems Review of Systems: A 10 system review of systems was completed on the patient and is negative except for what is stated in the HPI. Nursing and ancillary documentation was reviewed. [facility] Past Medical History Medical History Hyperlipidemia Hypertension Hypothyroidism Surgical History Surgical History History of hand surgery History of hysterectomy Partial vaginal hysterectomy History of spinal surgery History of ventral hernia repair Open RLQ ventral hernia repair S/P small bowel resection w anastomosis 09/09/21 Family History Family History Sibling Family history of coronary artery disease Social History Social History Smoking status: Never smoker Alcohol intake: never Substance use: never Living arrangements: with family Additional living arrangements comments: Her son lives with her at her home. Occupation/Education: retired Gender identity (if verbalized by the patient): Female Sexual Orientation (if Verbalized by the Patient): Straight or Heterosexual Spiritual care concerns: No Agree to blood products: Yes Exam Narrative: GENERAL: Well-appearing, well-nourished, and in no acute distress. HEAD: Normocephalic, atraumatic. EYES: PERRLA and EOMI. left-sided eyelid droop, this is at the patient's baseline ENT: Nares clear, no rhinorrhea or epistaxis. Mucous membranes moist. NECK: Supple. CHEST: Clear to auscultation. No respiratory distress. HEART: Regular rate and rhythm. No murmur heard. Normal peripheral pulses. ABDOMEN: Soft, nontender, nondistended, normal active bowel sounds. EXTREMITIES: Normal range of motion. No edema. SKIN: Warm, dry, no rash. NEURO: No focal deficits. Alert and oriented x3. PSYCH: Normal mood and affect. Course Vital Signs Vital signs: Vital Signs Pulse Rate 84 11/17/22 23:05 Respiratory Rate 17 11/17/22 23:05 Blood Pressure 167/82 H 11/17/22 23:05 Pulse Oximetry 93 11/17/22 23:05 Oxygen Delivery Room Air 11/17/22 23:05 Pulse Rate 110 H 11/18/22 01:22 Respiratory Rate 15 11/18/22 01:22 Blood Pressure 145/97 H 11/18/22 01:22 Pulse Oximetry 98 11/18/22 01:22 Oxygen Delivery Room Air 11/17/22 23:05
[2022-11-18 01:31] LABS: Appearance Urine Clear (Clear); Bilirubin Urine Negative (Negative); Blood Urine Negative (Negative); Color Urine Yellow (Yellow); Glucose Urine UA Negative (Negative); Ketones Urine Negative (Negative); Leukocyte Esterase Ur Negative LEU/UL (Negative); Nitrate Urine Negative (Negative); Protein Urine Negative (Negative); Urobilinogen Urine 0.2 mg/dL (<2.0); pH Urine 5.5 (5.0-9.0)
[2022-11-18 01:57] LABS: Specific Grav Ur 1.048 (1.001-1.035)
[2022-11-18 02:00] LABS: Add Urine Microscopic? NO
[2022-11-18 02:10] LABS: Lactic Acid Reflex 1.4 mmol/L (0.7-2.0)
--- NOTE | 2022-11-18 02:32 | PC.NURSE ---
Spoke with [facility] transfer center on the phone and gave them triage information for the pt. Pt has been accepted at [facility], waiting to here back for room assignment.
[2022-11-18 02:45] LABS: Reflex Lactic Acid Yes or No Add Lactic
--- NOTE | 2022-11-18 03:46 | PC.NURSE ---
Pt signed informed consent to transfer witnessed by this RN. Report has been called to [facility] neurology floor, spoke to Emily WILLIAMSON. Pt is now awaiting transport from [facility], their eta is [id number]. Pt is aware and resting at this time. Will continue to monitor.
--- NOTE | 2022-11-18 06:10 | PC.NURSE ---
Pt's O2 saturation dipped down into the 70%'s as she was sleeping. Pt denies having sleep apnea. Pt was placed on 1.5 L O2 via nasal cannula, pt's O2 saturation is now 98% and maintaining. Will continue to monitor.
--- NOTE | 2022-11-18 07:37 | PC.NURSE ---
EDP, Dr. Contreras, made aware of patient now requiring supplemental oxygen via nasal cannula. Will continue to monitor.
== END 2022-11-18 11:47 | disposition short-term general hospital (02) ==
PROVIDERS: Emergency Provider Emergency Medicine
DX: G45.9 Transient cerebral ischemic attack, unspecified (principal); E78.5 Hyperlipidemia, unspecified; I10 Essential (primary) hypertension; E03.9 Hypothyroidism, unspecified; Z90.49 Acquired absence of other specified parts of digestive tract; Z90.711 Acquired absence of uterus with remaining cervical stump; I44.7 Left bundle-branch block, unspecified
CPT/HCPCS: 36415; 70450; 70496; 70498; 71045; 80053; 81003; 83605; 83735; 84484; 85025; 85055; 85610; 85730; 93005; 96360; 96361; 99285; J7030; Q9967

== ENCOUNTER 2022-12-12 10:08 | Outpatient (CLI) | payer MEDICARE, SELFPAY ==
--- NOTE | 2022-12-31 17:11 | WPDSLEEPSTUD ---
Sleep Study Date of Study: 12/12/22 <Karen Bowen MD - Last Filed: 01/02/23 18:46> Ordering Provider: ANGELINA Deng <Karen Bowen MD - Last Filed: 01/02/23 18:46> Interpreting Physician: Karen Bowen MD <Karen Bowen MD - Last Filed: 01/02/23 18:46> Sleep Study Type: Split Polysomnogram <Karen Bowen MD - Last Filed: 01/02/23 18:46> Height: 1.55 m <Karen Bowen MD - Last Filed: 01/02/23 18:46> Weight: 74.843 kg <Karen Bowen MD - Last Filed: 01/02/23 18:46> Body Mass Index: 31.1 <Karen Bowen MD - Last Filed: 01/02/23 18:46> 31.1 <Juliann Florence DO - Last Filed: 01/02/23 17:52> Neck Circumference (inches): 15.5 <Karen Bowen MD - Last Filed: 01/02/23 18:46> [place]: 2 <Karen Bowen MD - Last Filed: 01/02/23 18:46> Reason for Sleep Study Witnessed apnea <Karen Bowen MD - Last Filed: 01/02/23 18:46> Sleep History Karla Coley is an 82-year-old woman who is told by others that she stops breathing during her sleep. She does not awaken from sleep feeling short of breath or awaken at night with heartburn, belching or coughing. She occasionally snores but not loudly enough that others complain about it. She does not have difficulty sleeping with a cold. She does not wake up gasping for breath at night. She does not have breathing problems at night observed by others. She does not sweat excessively at night. She does not notice her heart pounding or beating irregularly at night. She does not fall asleep during the day. She does not fall asleep involuntarily or while driving. She does not have loss of muscle tone with strong emotion. She does not have daytime difficulties due to excessive sleepiness. She does not feel paralyzed on waking or falling asleep. She does not have vivid dreamlike scenes upon awakening or falling asleep. She does not feel afraid to go to sleep. She does not have nightmares. She occasionally remembers her dreams. She does not have racing thoughts. She rarely feels sad, depressed or anxious. She does not have muscular tension. She does not notice parts her body jerking. She does not kick at night or have crawling or aching feelings in her legs. She occasionally has pain in the right leg at night where she had a fracture. She does not have morning jaw pain and does not grind her teeth during sleep. She has arthritis pain during the day. She is not awaken at night with pain. She rarely wakes up feeling stiff in the morning with sore achy muscles and pain in the neck and spine. Normal bedtime is between 9:00 p.m. and 9:30 p.m., takes 15-30 minutes fall asleep, typically wakes twice at night to use the bathroom. She wakes the morning at 6:00 a.m.. She keeps the same schedule on weekends. She gets 8 hours of sleep normally. She sometimes takes a nap in the afternoon or evening. A short nap lasting 10 or 15 minutes may be refreshing. She feels usually pretty good on waking. She feels better in the morning compared to other times of day. Habits: Never smoked tobacco. Caffeine 2-3 cups a day. Alcohol, 1 beverage a week or less often. No recreational substances. <Karen Bowen MD - Last Filed: 01/02/23 18:46> [facility] Past Medical History Medical History: Medical History Cholelithiasis Encounter for surgical aftercare following surgery on the digestive system Hyperlipidemia Hypertension Hypothyroidism Protein-calorie malnutrition, moderate Small bowel obstruction Small bowel obstruction with strangulation or infarction <Karen Bowen MD - Last Filed: 01/02/23 18:46> Surgical History Surgical History: Surgical History History of hand surgery History of hysterectomy Partial vaginal hysterectomy History of placement of leadless ca
[2023-01-02 18:46] VITALS: BMI 31.1
== END 2022-12-13 06:37 | disposition home or self-care (01) ==
LOC: ANHCSM 10:14
PROVIDERS: PCP Internal Medicine; Visit Provider Clinical Nurse Specialist
DX: R40.4 Transient alteration of awareness (principal); G47.61 Periodic limb movement disorder; G47.33 Obstructive sleep apnea (adult) (pediatric)
CPT/HCPCS: 95811